=== PATIENT | female | born 1950 | race Caucasian/White ===

== ENCOUNTER → 2017-11-29 10:49 | Outpatient (CLI) | payer MEDICARE, MEDICAID, SELFPAY ==
[2017-11-29 11:13] LABS: Basophils % 0.8 % (0.1-2.0); Eosinophils # 0.1 K/mm3 (0.0-0.4); Eosinophils % 2.1 % (0.1-12.0); Hematocrit 50.2 % (37.0-47.0); Hemoglobin 15.1 g/dL (12.2-16.2); Lymphocytes # 1.5 K/mm3 (0.7-4.5); Mean Corpuscular HGB Conc 30.1 g/dL (31.8-35.4); Mean Corpuscular Hemoglobin 24.7 pg (27.0-31.2); Mean Corpuscular Volume 82.2 fl (81-99); Monocytes # 0.3 K/mm3 (0.1-1.0); Monocytes % 6.1 % (1.7-9.3); Neutrophils # 3.5 K/mm3 (1.8-7.8); Neutrophils % 63.1 % (37.0-80.0); Platelet Count 248 K/mm3 (142-424); Red Blood Count 6.11 M/mm3 (4.20-5.40); Red Cell Distribution Width 13.6 % (11.5-17.5); White Blood Count 5.5 K/mm3 (4.8-10.8)
[2017-11-29 12:54] LABS: Alanine Aminotransferase 29 U/L (12-78); Albumin Level 3.8 gm/dL (3.4-5.0); Albumin/Globulin Ratio 1.2 (1.1-1.8); Alkaline Phosphatase 59 U/L (46-116); Anion Gap 13.9 mEq/L (5-15); Aspartate Amino Transferase 24 U/L (15-37); Bilirubin,Total 0.4 mg/dL (0.2-1.0); Blood Urea Nitrogen 17 mg/dL (7-18); Calcium 9.4 mg/dL (8.5-10.1); Carbon Dioxide 29 mmol/L (21.0-32.0); Chloride 102 mmol/L (98-107); Creatinine,Serum 0.93 mg/dL (0.55-1.02); Estimated Glomerular Filt Rate 60 ml/min (>60); GFR (African American) 72 ML/MIN (>60); Globulin 3.2 gm/dl (1.3-3.2); Glucose 89 mg/dL (74-106); Potassium 3.9 mmoL/L (3.5-5.1); Sodium 141 mmol/L (136-145)
== END ==
PROVIDERS: Visit Provider Nurse Practitioner
DX: C50.912 Malignant neoplasm of unspecified site of left female breast (principal); N28.9 Disorder of kidney and ureter, unspecified
CPT/HCPCS: 36415; 80053; 85025

== ENCOUNTER → 2019-01-16 11:03 | Outpatient (CLI) | payer MEDICARE, MEDICAID, SELFPAY ==
[2019-01-16 11:22] LABS: Basophils % 0.3 % (0.1-2.0); Eosinophils # 0.1 K/mm3 (0.0-0.4); Eosinophils % 2.6 % (0.1-12.0); Hematocrit 45.1 % (37.0-47.0); Hemoglobin 13.8 g/dL (12.2-16.2); Lymphocytes # 1.3 K/mm3 (0.7-4.5); Lymphocytes % 25.2 % (10-50); Mean Corpuscular HGB Conc 30.7 g/dL (31.8-35.4); Mean Corpuscular Hemoglobin 24.6 pg (27.0-31.2); Mean Corpuscular Volume 80.2 fl (81-99); Mean Platelet Volume 8.1 fl (7.4-10.4); Monocytes # 0.4 K/mm3 (0.1-1.0); Monocytes % 6.8 % (1.7-9.3); Neutrophils # 3.4 K/mm3 (1.8-7.8); Neutrophils % 65.1 % (37.0-80.0); Platelet Count 225 K/mm3 (142-424); Red Blood Count 5.62 M/mm3 (4.20-5.40); Red Cell Distribution Width 13.6 % (11.5-17.5); White Blood Count 5.2 K/mm3 (4.8-10.8)
[2019-01-16 11:56] LABS: Alanine Aminotransferase 24 U/L (12-78); Albumin Level 3.6 gm/dL (3.4-5.0); Albumin/Globulin Ratio 1.2 (1.1-1.8); Alkaline Phosphatase 54 U/L (46-116); Anion Gap 10.8 mEq/L (5-15); Aspartate Amino Transferase 20 U/L (15-37); Bilirubin,Total 0.5 mg/dL (0.2-1.0); Blood Urea Nitrogen 27 mg/dL (7-18); Calcium 8.8 mg/dL (8.5-10.1); Carbon Dioxide 31 mmol/L (21.0-32.0); Chloride 103 mmol/L (98-107); Estimated Glomerular Filt Rate 55 ml/min (>60); GFR (African American) 66 ML/MIN (>60); Globulin 2.9 gm/dl (1.3-3.2); Glucose 96 mg/dL (74-106); Potassium 3.8 mmoL/L (3.5-5.1); Sodium 141 mmol/L (136-145); Total Protein,Serum 6.5 gm/dL (6.4-8.2)
== END ==
PROVIDERS: Visit Provider Nurse Practitioner
DX: C50.912 Malignant neoplasm of unspecified site of left female breast (principal)
CPT/HCPCS: 36415; 80053; 85025

== ENCOUNTER 2022-02-28 08:56 | Observation (INO) | payer MEDICARE, MEDICAID, SELFPAY ==
[2022-02-28] VITALS (16 sets, daily range): BP systolic 92–126; BP diastolic 47–72; PULSE 58–95; RESP 16–20; TEMP 36.7–36.9; O2SAT 94–100; BMI 21.9; BMI 22.1
--- NOTE | 2022-02-28 08:53 | HMH.EDGENADL ---
Discharge Plan Disposition Patient Disposition: Xfer Other Condition: Fair Prescriptions Prescriptions: No Action hydrochlorothiazide 25 mg tablet 25 mg PO QAM cholecalciferol (vitamin D3) 1,000 unit capsule 1,000 unit PO DAILY Clinical Impressions Clinical Impression: Pancreatitis, Cyst and pseudocyst of pancreas, Acute hypokalemia, Moderate nausea and vomiting Instructions Patient Instructions: DI for Acute Abdominal Pain Discharge ED Provider: Cruz Levine General Adult HPI General Chief complaint: Abdominal Pain Stated complaint: Back Pain Time Seen by Provider: 02/28/22 08:53 Mode of Arrival: EMS History of Present Illness HPI narrative: 71-year-old female with history of pancreatic cancer, follows at , not currently undergoing any treatment. She reports having chronic lower back pain for which she takes hydrocodone twice daily. She is brought in today by EMS for exacerbation of low back pain which she states is much worse than typical and did not respond to her usual dose of hydrocodone. She is also reporting lower abdominal pain particularly in the periumbilical and right lower quadrant areas. Pain is described as constant, nonradiating, exacerbated with movement or palpation. She reports associated nausea however no vomiting, states she has been unable to eat does not have anything to throw up. She denies any dysuria any pain radiating down the legs any numbness, tingling, urinary incontinence or retention or any other complaints at this time Related Data Home Medications Medication Instructions Recorded Confirmed hydrochlorothiazide 25 mg tablet 25 mg PO QAM 11/29/17 01/16/19 cholecalciferol (vitamin D3) 25 1,000 unit PO DAILY 01/16/19 01/16/19 mcg (1,000 unit) capsule Allergies Allergy/AdvReac Type Severity Reaction Status Date / Time No Known Allergies Allergy Verified 01/16/19 11:27 [facility] Medical History (Updated 02/28/22 @ 11:01 by Cruz Levine MD) Chronic back pain Pancreatic cancer Social History Smoking Status: Never smoker alcohol intake: never substance use type: denies use current occupational status: retired Travel in the last 8 weeks: None household members: significant other housing: other ROS Obtained: Yes Systems reviewed as appropriate & no additional complaints except as documented Constitutional Constitutional: Reports anorexia, Reports fatigue and Reports poor appetite Eyes Eyes: Reports system reviewed and no additional complaints, except as documented ENT Ears, Nose, Mouth, and Throat: Reports system reviewed and no additional complaints, except as documented Cardiovascular Cardiovascular: Reports system reviewed and no additional complaints, except as documented Respiratory Respiratory: Reports system reviewed and no additional complaints, except as documented Gastrointestinal Gastrointestingal: Reports abdominal pain and nausea; Denies coffee ground emesis, constipation, diarrhea, hematochezia, melena or vomiting Genitourinary Female Genitourinary: Reports system reviewed and no additional complaints, except as documented and Denies dysuria Musculoskeletal Musculoskeletal: Reports system reviewed and no additional complaints, except as documented Integumentary/Breasts Skin/Breast: Reports system reviewed and no additional complaints, except as documented Neurologic Neurologic: Reports system reviewed and no additional complaints, except as documented Endocrine Endocrine: Reports system reviewed and no additional complaints, except as documented and Reports fatigue Hematologic/Lymphatic Henatologic/Lymphatic: Reports system reviewed and no additional complaints, except as documented Allergic/Immunologic Allergic/Immunologic: Reports system reviewed and no additional complaints, except as documented Physical Exam General General appearance: alert and in no apparent dis
--- NOTE | 2022-02-28 08:58 | CT_ITS ---
PROCEDURE INFORMATION: Exam: CT Abdomen And Pelvis With Contrast Exam date and time: 02/28/2022 10:01 AM Age: 71 years old Clinical indication: Abdominal pain; Acute; Additional info: Rlq pain, lower back rupa HX of pancreatic cancer TECHNIQUE: Imaging protocol: Computed tomography of the abdomen and pelvis with contrast. Radiation optimization: All CT scans at this facility use at least one of these dose optimization techniques: automated exposure control; mA and/or kV adjustment per patient size (includes targeted exams where dose is matched to clinical indication); or iterative reconstruction. Contrast material: ISOVUE; Contrast volume: 75 ml; Contrast route: IV; COMPARISON: No relevant prior studies available. FINDINGS: Heart: There are coronary artery calcifications. Liver: There are few hypodensities in liver which are too small to characterize. Gallbladder and bile ducts: There is a biliary stent in place. There is pneumobilia. There are calcified gallstones. Pancreas: There is a mass within the pancreatic head and uncinate process encasing the SMA. This measures at least 3.3 x 2.1 cm. There is marked pancreatic duct dilatation measuring up to 1.5 cm. There is a collection adjacent to the pancreatic tail measuring 7.4 x 3.6 cm which may represent a pseudocyst. Spleen: The spleen is mildly enlarged measuring up to 14.8 cm. Adrenal glands: Normal. No mass. Kidneys and ureters: There are bilateral nonobstructing calculi. No hydronephrosis. Stomach and bowel: There is gastric mucosal thickening consistent with gastritis. Appendix: No evidence of appendicitis. Intraperitoneal space: No free air. No significant fluid collection. Vasculature: There is athrosclerotic disease involving the abdominal aorta and pelvis vessels without an aneurysm. There is splenic vein occlusion. Lymph nodes: No enlarged lymph nodes. Urinary bladder: Unremarkable as visualized. Reproductive: The uterus is retroverted. There is abnormal thickening of the endometrium measuring up to 15 mm. Bones/joints: There are degenerative changes of the spine. Soft tissues: Unremarkable. IMPRESSION: 1. Mass in the pancreatic head with marked pancreatic duct dilatation. 2. Large fluid collection in the anterior pararenal space adjacent to the pancreatic tail consistent with pancreatitis. There may be a early pseudocyst forming. 3. Biliary stent. 4. Gallstones. 5. Nonobstructing renal calculi. 6. Thickened endometrium. A follow-up ultrasound may be clinically indicated.
--- NOTE | 2022-02-28 09:12 | PC.NURSE ---
Pt family at bedside at this time. Pt laying in stretcher. WINNIE Donnelly at bedside to draw labs and medicate pt.
--- NOTE | 2022-02-28 09:25 | PC.NURSE ---
Gave pt a warm blanket; no other needs at this time
[2022-02-28 09:43] LABS: Coronavirus 19, PCR Not Detected (NotDetected); Influenza A, PCR Not Detected (NotDetected); Influenza B, PCR Not Detected (NotDetected)
[2022-02-28 09:46] LABS: Basophils % 0.2 % (0.1-2.0); Eosinophils % 0.1 % (0.1-12.0); Hematocrit 38.3 % (37.0-47.0); Lymphocytes # 0.5 K/mm3 (0.7-4.5); Lymphocytes % 3.8 % (10-50); Mean Corpuscular HGB Conc 31.4 g/dL (31.8-35.4); Mean Corpuscular Hemoglobin 25.8 pg (27.0-31.2); Mean Corpuscular Volume 82.3 fl (81-99); Mean Platelet Volume 9.5 fl (7.4-10.4); Monocytes # 0.4 K/mm3 (0.1-1.0); Monocytes % 2.9 % (1.7-9.3); Neutrophils # 12.7 K/mm3 (1.8-7.8); Neutrophils % 93.1 % (37.0-80.0); Platelet Count 307 K/mm3 (142-424); Red Blood Count 4.65 M/mm3 (4.20-5.40); Red Cell Distribution Width 14.2 % (11.5-17.5); White Blood Count 13.7 K/mm3 (4.8-10.8)
[2022-02-28 09:49] LABS: MANUAL DIFFERENTIAL MANUAL DIFFERENTIAL (MANUAL DIFF)
[2022-02-28 09:52] LABS: Alanine Aminotransferase 18 U/L (12-78); Albumin Level 2.9 g/dl (3.5-5.0); Albumin/Globulin Ratio 0.9 (1.1-1.8); Alkaline Phosphatase 142 U/L (38-126); Anion Gap 12.9 mEq/L (5-15); Aspartate Amino Transferase 22 U/L (14-36); Bilirubin,Total 0.6 mg/dl (0.2-1.3); Blood Urea Nitrogen 25 mg/dl (7-17); Calcium 8.4 mg/dl (8.4-10.2); Carbon Dioxide 33 mmol/L (22.0-30.0); Chloride 95 mmol/L (98-107); Creatinine Clearance Estimated 43 mL/min (50-200); Estimated Glomerular Filt Rate 156 ml/min (>60); GFR (African American) 189 ML/MIN (>60); Globulin 3.2 g/dL (1.3-3.2); Glucose 134 mg/dl (74-100); Lipase 384 U/L (23-300); Sodium 138 mmol/L (136-145); Total Protein,Serum 6.1 g/dl (6.3-8.2)
--- NOTE | 2022-02-28 09:52 | PC.NURSE ---
pt ambulated well to and from restroom; produced urine and tech sent to the lab
[2022-02-28 09:53] LABS: Potassium 2.9 mmoL/L (3.5-5.1)
[2022-02-28 09:53] LABS: Appearance,Urine SL CLOUDY (Clear); Blood, Urine Negative (Negative); Color,Urine YELLOW (Yellow); Glucose,Urine (UA) Negative (Negative); Ketones,Urine 3+ (Negative); Leukocyte Esterase,Urine Negative (Negative); Microscopic, Urine URINE MICROSCOPIC (MICROSCOPIC); Nitrate,Urine Negative (Negative); Protein,Urine TRACE (Negative); Urobilinogen,Urine 0.2 EU/dl (0.2)
[2022-02-28 09:57] LABS: Bilirubin,Urine 2+ (Negative)
[2022-02-28 10:02] LABS: Lymphocytes % 4 % (10-50); Monocytes % 3 % (2-9); Neutrophils % 92 % (42-76); Total Cells Counted 100
[2022-02-28 10:03] LABS: Hypochromasia 1+; Ovalocytes 1+; Platelet Estimate Normal
[2022-02-28 10:15] LABS: Bacteria,Urine Trace /lpf; WBC,Urine Occasional #/hpf (0-3)
--- NOTE | 2022-02-28 10:55 | PC.NURSE ---
placed call to [facility] for transfer
--- NOTE | 2022-02-28 10:59 | PC.NURSE ---
CONTACTED RADIOLOGY REQUESTED THEY POWERSHARE PT IMAGES WITH , SPOKE WITH REMI.
--- NOTE | 2022-02-28 11:03 | PC.NURSE ---
Dr Levine talking to for transfer
--- NOTE | 2022-02-28 11:07 | PC.NURSE ---
pt accepted to at this time per Dr. Kuhn, no bed available at this time.
--- NOTE | 2022-02-28 14:18 | PC.NURSE ---
contacted to check on status of bed assignment, transfer center staff states pt is on a long waiting list . No ETA available for bed assignment at this time.
--- NOTE | 2022-02-28 14:24 | PC.NURSE ---
updated pt and family member that she is on waiting list at at this time and we do not currently have an ETA on bed assignment. Offered pt a hospital bed for more comfort, pt declined at this time states she is okay. pt given additional warm blanket. Pt reminded about call light. Will continue to monitor
--- NOTE | 2022-02-28 14:38 | PC.NURSE ---
Flavia ZHOU brought bed for pt
--- NOTE | 2022-02-28 16:00 | PC.NURSE ---
jonathon berry rounded on pt at this time, pt sleeping.
--- NOTE | 2022-02-28 17:28 | PC.NURSE ---
Tyron Valdez at this time.
--- NOTE | 2022-02-28 17:57 | PC.NURSE ---
Dr caro speaking with dr [email or web address]
[2022-03-01 04:11] VITALS: BP 115/57; PULSE 72; RESP 16; TEMP 36.9; O2SAT 97
--- NOTE | 2022-03-01 04:58 | PC.NURSE ---
PT HAS RESTED WELL THIS SHIFT. PAIN CONTROLLED WITH PRN MEDICATIONS. LUNGS REMAIN CTAB AND BOWEL ACTIVE X4 QUADRANTS. MILD GENERALIZED ABDOMINAL TENDERNESS WITH PALPATION NOTED. NO EDEMA OR SKIN PROBLEMS. PATIENT IS A&O X4 AND AMBULATORY WITH STANDBY ASSIST. IV TO RIGHT A/C PATENT AND INFUSING NS AT 150ML/HR. PT HAS REMAINED NPO. CALL DAVID IN REACH.
--- NOTE | 2022-03-01 08:11 | HMH.PHAINT1 ---
Pharmacy Intervention Comments: MEDICATION RECONCILIATION COMPLETED ON PATIENT USING EXTERNAL FILL HISTORY FROM PHARMACY AND GO REPORT. -GUY ESCALONA, DEBRAD
--- NOTE | 2022-03-01 08:12 | EXP.PHA.VTE ---
[facility] Pharmacy VTE Monitoring Patient Demographics Admission date: 02/28/22 Report Date: 03/01/22 Time: 08:12 Patient Allergies No Known Allergies Allergy (Verified 01/16/19 11:27) Height: 1.57 m Weight: 54.431 kg Current Active Problems (Updated 02/28/22 @ 19:00 by Kimberly Nevarez RN) Pancreatitis (Acute) Cyst and pseudocyst of pancreas (Acute) Acute hypokalemia (Acute) Moderate nausea and vomiting (Acute) VTE Risk Labs: VTE Related Lab Results Hgb 12.0 g/dL (12.2-16.2) L 02/28/22 09:20 Hct 38.3 % (37.0-47.0) 02/28/22 09:20 Plt Count 307 K/mm3 (142-424) 02/28/22 09:20 BUN 25 mg/dl (7-17) H 02/28/22 09:20 Creatinine 0.40 mg/dl (0.52-1.04) L 02/28/22 09:20 Estimated Creat Clear 43 mL/min (50-200) 02/28/22 09:20 Was VTE Risk Assessment Performed: Yes VTE Score: 1 VTE Risk Level: Very Low Risk Prophylaxis VTE Prophylaxis Ordered?: Yes Types of VTE Prophylaxis: TEDS Knee High Location of Applied Device: Bilateral Lower Extremeties
--- NOTE | 2022-03-01 08:29 | EXP.HP ---
History of Present Illness *Admission Date: 02/28/22 *Reason for visit:: abdominal pain *History of present illness: 71-year-old female with history of pancreatic cancer, follows at , not currently undergoing any treatment.? She reports having chronic lower back pain for which she takes hydrocodone twice daily.? She is brought in today by EMS for exacerbation of low back pain which she states is much worse than typical and did not respond to her usual dose of hydrocodone.? She is also reporting lower abdominal pain particularly in the periumbilical and right lower quadrant areas.? Pain is described as constant, nonradiating, exacerbated with movement or palpation.? She reports associated nausea however no vomiting, states she has been unable to eat does not have anything to throw up.? She denies any dysuria any pain radiating down the legs any numbness, tingling, urinary incontinence or retention or any other complaints at this time. Reevaluation #1: CT findings consistent with acute pancreatitis with associated likely pancreatic pseudocyst as there is large pararenal fluid collection.? This was not previously known, and I reviewed her CT from from 01/25/2022 which did not demonstrate this finding.? She provided further history noting that she had been seen at approximately [address] aSvage, had ERCP completed with biliary stent placed. will discuss with for transfer. re-visited and may be days before transfer.? Discussed with Dr. Valdez and will admit here in the interim. the above as per ER documentation. Patient received a run of IV fluids in the ER as well as a liter of IV fluids. She received morphine for pain and Zofran for nausea. This a.m. patient does feel better. She still has some mid back pain but has been well controlled. She did sleep some last night. She has been n.p.o. She states her bowels have not moved in about a week But she has eaten very little in the last 1 to 2 weeks. She has lost 20 pounds.. She voids without difficulty. Patient states she was to meet at This for plan of care. [facility] Medical History (Updated 03/01/22 @ 08:48 by Bertha Payan APRN) Chronic back pain Hypertension Pancreatic cancer Surgical History (Updated 02/28/22 @ 19:00 by Kimberly Nevarez RN) History of bilateral tubal ligation History of section History of colonoscopy Family History (Updated 02/28/22 @ 19:00 by Kimberly Nevarez RN) Family history of stroke Family history of cancer Social History (Updated 02/28/22 @ 19:00 by Kimberly Nevarez RN) Smoking Status: Never smoker alcohol intake: never substance use type: denies use current occupational status: retired Travel in the last 8 weeks: None household members: significant other housing: other lives independently: Yes marital status: Review of Systems Constitutional Constitutional: Reports fever(s), Denies frequent falls, Denies headache(s), Reports poor appetite, Reports weakness and Reports weight loss ( States she has lost 20 pounds in the last few weeks) Eyes Eyes: Denies change in vision ENT Ears, Nose, Mouth, and Throat: Denies dizziness, Denies otalgia, Denies headache(s), Denies sore throat and Denies vertigo *Cardiovascular Cardiovascular: Denies chest pain and Denies dyspnea *Respiratory Respiratory: Denies chest congestion, Denies cough and Denies dyspnea *Gastrointestinal Gastrointestinal: Reports abdominal pain, Denies belching, Reports constipation, Denies diarrhea, Denies dyspepsia, Denies excessive flatus, Denies heartburn, Denies hematemesis, Denies hematochezia, Reports nausea and Denies vomiting *Genitourinary Genitourinary: Denies difficulty voiding *Musculoskeletal Musculoskeletal: Denies muscle weakness and Denies myalgias *Neurologic Neurologic: Denies dizziness, Denies frequent falls, Denies headache(s), Denies seizure-like activity, Denies vertigo and Reports weaknes
[2022-03-01 08:30] VITALS: BP 141/65; PULSE 70; RESP 18; TEMP 36.4; O2SAT 96
--- NOTE | 2022-03-01 08:30 | PC.NURSE ---
here to see pt.
[2022-03-01 09:06] LABS: MANUAL DIFFERENTIAL MANUAL DIFFERENTIAL (MANUAL DIFF)
[2022-03-01 09:07] LABS: Basophils % 0.2 % (0.1-2.0); Eosinophils % 0.2 % (0.1-12.0); Hematocrit 36.1 % (37.0-47.0); Hemoglobin 11.1 g/dL (12.2-16.2); Lymphocytes # 0.6 K/mm3 (0.7-4.5); Lymphocytes % 4.7 % (10-50); Mean Corpuscular HGB Conc 30.7 g/dL (31.8-35.4); Mean Corpuscular Hemoglobin 25.6 pg (27.0-31.2); Mean Corpuscular Volume 83.3 fl (81-99); Mean Platelet Volume 10.1 fl (7.4-10.4); Monocytes # 0.3 K/mm3 (0.1-1.0); Monocytes % 2.4 % (1.7-9.3); Neutrophils # 11.7 K/mm3 (1.8-7.8); Neutrophils % 92.5 % (37.0-80.0); Platelet Count 321 K/mm3 (142-424); Red Blood Count 4.34 M/mm3 (4.20-5.40); Red Cell Distribution Width 14.3 % (11.5-17.5); White Blood Count 12.6 K/mm3 (4.8-10.8)
[2022-03-01 09:12] VITALS: O2SAT 96
[2022-03-01 09:13] LABS: Chloride 103 mmol/L (98-107)
[2022-03-01 09:14] LABS: Sodium 141 mmol/L (136-145)
[2022-03-01 09:17] LABS: Anion Gap 17.8 mEq/L (5-15); Calcium 7.3 mg/dl (8.4-10.2); Carbon Dioxide 23 mmol/L (22.0-30.0); Glucose 95 mg/dl (74-100)
[2022-03-01 09:23] LABS: Hypochromasia 2+; Lymphocytes % 5 % (10-50); Monocytes % 3 % (2-9); Neutrophils % 92 % (42-76); Ovalocytes 1+; Platelet Estimate Normal; Total Cells Counted 100
[2022-03-01 09:24] LABS: Anisocytosis 1+
[2022-03-01 09:32] LABS: Potassium 2.8 mmoL/L (3.5-5.1)
[2022-03-01 10:14] LABS: Blood Urea Nitrogen 16 mg/dl (7-17); Creatinine Clearance Estimated 43 mL/min (50-200); Estimated Glomerular Filt Rate 121 ml/min (>60); GFR (African American) 146 ML/MIN (>60)
[2022-03-01 12:00] VITALS: BP 116/56; PULSE 62; RESP 18; TEMP 36.9; O2SAT 97
--- NOTE | 2022-03-01 13:41 | PC.NURSE ---
Pt given chicken broth per request. Has tolerated water and ice chips thus far.
--- NOTE | 2022-03-01 14:40 | PC.NURSE ---
Received bed assignment from [facility]. Pt and pt's family notified.
--- NOTE | 2022-03-01 14:59 | PC.NURSE ---
Attempted to call [facility] to give report. Called 2 different numbers ([phone] and [phone]) with no answer. Both numbers rang numerous times.
--- NOTE | 2022-03-01 15:33 | PC.NURSE ---
Pt up to the bathroom taking a sponge bath . Does not want to shower at this time stating it's too cold .
--- NOTE | 2022-03-01 15:49 | PC.NURSE ---
1545- Report called to Margot CAVAZOS RN that will be receiving pt.
--- NOTE | 2022-03-01 18:07 | PC.NURSE ---
[facility] here to transport pt to [facility]
--- NOTE | 2022-03-01 21:15 | EXP.DC.SUM ---
General Admission date:: 02/28/22 Discharge date: 03/01/22 HPI HPI HPI: 71-year-old female with history of pancreatic cancer, follows at , not currently undergoing any treatment.? She reports having chronic lower back pain for which she takes hydrocodone twice daily.? She is brought in today by EMS for exacerbation of low back pain which she states is much worse than typical and did not respond to her usual dose of hydrocodone.? She is also reporting lower abdominal pain particularly in the periumbilical and right lower quadrant areas.? Pain is described as constant, nonradiating, exacerbated with movement or palpation.? She reports associated nausea however no vomiting, states she has been unable to eat does not have anything to throw up.? She denies any dysuria any pain radiating down the legs any numbness, tingling, urinary incontinence or retention or any other complaints at this time. Reevaluation #1: CT findings consistent with acute pancreatitis with associated likely pancreatic pseudocyst as there is large pararenal fluid collection.? This was not previously known, and I reviewed her CT from from 01/25/2022 which did not demonstrate this finding.? She provided further history noting that she had been seen at approximately [address] Savage, had ERCP completed with biliary stent placed. will discuss with for transfer. re-visited and may be days before transfer.? Discussed with Dr. Valdez and will admit here in the interim. the above as per ER documentation. Patient received a run of IV potassium in the ER as well as a liter of IV fluids. She received morphine for pain and Zofran for nausea. The next a.m. patient felt better. She still had some mid back pain but was controlled. She did sleep some during the night. She remained n.p.o. She stated her bowels had not moved in about a week She also noted that she had eaten very little in the last 1 to 2 weeks with about a 20 pound weight loss.. She was voiding without difficulty. Patient stated she was to meet at This for plan of care. Hospital Course Hospital Course Hospital Course: After admission pt was continued with IVF with potassoim. She received addition PO and IV potassium for repeat low potassium of 2.8. She received morphine for pain and Zofran for nausea. She was able to retain some clear liquids. In the PM of 03/01/2022 a bed became available and the patient was transferred to [facility] via [facility]'s ambulance service. Condition at transfer was stable. Further care as per Physicians at . See data for lab and radiology results. Exam Data for Last 24 hours Vital signs and Labs for Last 24 Hours: Temp Pulse Resp BP Pulse Ox 98.5 F 62 18 116/56 L 97 03/01/22 12:00 03/01/22 12:00 03/01/22 12:00 03/01/22 12:00 03/01/22 12:00 Laboratory Results - last 24 hr 03/01/22 09:00: WBC 12.6 H, RBC 4.34, Hgb 11.1 L, Hct 36.1 L, MCV 83.3, MCH 25.6 L, MCHC 30.7 L, RDW 14.3, Plt Count 321, MPV 10.1, Neut % (Auto) 92.5 H, Lymph % (Auto) 4.7 L, Barry % (Auto) 2.4, Eos % (Auto) 0.2, Baso % (Auto) 0.2, Neut # (Auto) 11.7 H, Lymph # (Auto) 0.6 L, Barry # (Auto) 0.3, Eos # (Auto) 0.0, Baso # (Auto) 0.0, Total Counted 100, Neutrophils % (Manual) 92 H, Lymphocytes % (Manual) 5 L, Monocytes % (Manual) 3, Platelet Estimate Normal, Hypochromasia 2+, Anisocytosis 1+, Ovalocytes 1+ 03/01/22 09:00: Sodium 141, Potassium 2.8 L*, Chloride 103, Carbon Dioxide 23, Anion Gap 17.8 H, BUN 16 D, Creatinine 0.50 L D, Estimated Creat Clear 43, Estimated GFR 121, Est GFR ( Amer) 146 D, Glucose 95 D, Calcium 7.3 L Exam Data for Last 24 hours Vital signs and Labs for Last 24 Hours: Temp Pulse Resp BP Pulse Ox ?98.4 F ?72 ?16 ?115/57 L ?97 ?03/01/22 04:11 ?03/01/22 04:11 ?03/01/22 04:11 ?03/01/22 04:11 ?03/01/22 04:11 Laboratory Results - last 24 hr 02/28/22 09:20: WBC 13.7 H, RBC 4.65,?Hgb 12.0 L, Hct 38.3, MCV 82.3,?MCH 25.8 L,?MCHC 31.4 L, RDW 14.2, Plt
--- NOTE | 2022-04-01 15:30 | DIET.NUTRFU ---
RD was consulted by nursing in [place]. Patient has pancreatic CA with nausea and wt loss. Recently started on zofran and is feeling better. When called today she said she has been eating better and even went for a walk today. She has been drinking boost all home multiple times/day. Weight hx 118 on 03/01 and 113 03/31, down 5#. Patient was anxious to start chemo. She indicated she has been through chemo tx before. Provided contact information for future concerns
== END 2022-03-01 18:11 | disposition short-term general hospital (02) ==
LOC: ER 11:01 → OB 18:18
PROVIDERS: Nurse Practitioner Family; Admitting Provider Family Medicine; Emergency Provider Emergency Medicine; PCP Nurse Practitioner Family; Visit Provider Family Medicine
DX: K85.90 Acute pancreatitis without necrosis or infection, unspecified (principal); K86.2 Cyst of pancreas; K86.3 Pseudocyst of pancreas; E87.6 Hypokalemia; C25.9 Malignant neoplasm of pancreas, unspecified; R29.6 Repeated falls; Z20.822 Contact with and (suspected) exposure to COVID-19
CPT/HCPCS: G0378; 36415; 74177; 80048; 80053; 81001; 83690; 85007; 85014; 85018; 85025; 85048; 85049; 99285; C9803; J2405; Q9967; U0003; U0005

== ENCOUNTER → 2022-04-08 10:10 | Outpatient (CLI) | payer MEDICARE, MEDICAID, SELFPAY ==
--- NOTE | 2022-04-08 10:25 | US_ITS ---
FINAL REPORT CLINICAL HISTORY: PANCRIATIC CANCER-- LT PLEURAL EFFUSION THORA PERF BY FRANCK ULRICH-- 450 FINDINGS: ULTRASOUND GUIDED THORACENTESIS History: Left pleural effusion Attending radiologist: Dr. Garcia Physician payroll and benefits assistant: Franck Ulrich PA-C Procedure: The left posterior chest was prepped and routine sterile fashion. Appropriate pocket was localized for drainage. The patient was prepped and draped in routine fashion. Local anesthesia was achieved with 1% lidocaine. Using imaging guidance with images acquired, Turkel needle was directed into the pleural fluid. Approximately 450 mL of fluid was aspirated. Fluid was sent for laboratory analysis. IMPRESSION: Successful ultrasound guided thoracentesis There are multiple surgical clips identified overlying the right upper quadrant, consistent with cholecystectomy. Images reviewed, interpreted and dictated by Dr. Garcia. Transcribed by Franck Ulrich PA-C. Reviewed, Interpreted and Dictated by Koko Garcia III, MD Transcribed by MAYANK Ruiz Authenticated and [facility]
[2022-04-08 10:35] VITALS: BMI 20.6
--- NOTE | 2022-04-08 10:36 | ECG_ITS ---
APPROVED REPORT Exam: Resting ECG HR:100 bpm ECG Measurements Heart Rate 100 AXES GA 147 P 84 QRSd 74 QRS 14 QT 346 T 61 QTc 403 Conclusion SINUS TACHYCARDIA WITH FREQUENT SUPRAVENTRICULAR PREMATURE COMPLEXES LOW QRS VOLTAGE IN PRECORDIAL LEADS [QRS DEFLECTION < 1.0 mV IN CHEST LEADS] NONSPECIFIC T-WAVE ABNORMALITY ABNORMAL RHYTHM ECG UNCONFIRMED REPORT Electronically signed by : Ricardo Gu MD 04/08/2022 15:25:00
--- NOTE | 2022-04-08 11:10 | PC.NURSE ---
[facility] assessed patient r/t abn EKG in preop . Instructed to have patient FU in cardiololgy office in 2 weeks. Scheduled appt for Apr 21 @ 0830. Gave information verbal and written to patient and daughter in preop.
--- NOTE | 2022-04-08 11:25 | EXP.CARD.CON ---
History of Present Illness History of Present Illness Consult date: 04/08/22 [facility] Medical History (Updated 04/08/22 @ 10:32 by Yolette Miranda, RN) Chronic back pain History of breast cancer Hypertension Pancreatic cancer Surgical History (Updated 04/08/22 @ 10:34 by Yolette Miranda, RN) History of bilateral tubal ligation History of section History of colonoscopy History of lumpectomy of left breast Family History (Updated 04/08/22 @ 10:36 by Yoletet Miranda, RN) Other Family history of cancer Family history of diabetes mellitus type II Family history of stroke Social History (Updated 04/08/22 @ 10:38 by Yolette Miranda, WINNIE) Smoking Status: Former smoker alcohol intake: never substance use type: denies use current occupational status: retired Travel in the last 8 weeks: None household members: significant other housing: other lives independently: Yes marital status: Exam Data for Last 24 hours I & O for Last 24 hours: Intake & Output 04/05/22 04/06/22 04/07/22 04/08/22 23:59 23:59 23:59 23:59 Weight 113 lb Meds Home Medications and Allergies Home Medications Medication Instructions Recorded Confirmed Type hydrochlorothiazide 25 mg tablet 25 mg PO DAILY Fluid 03/31/22 04/08/22 History ondansetron 4 mg disintegrating 4 mg PO DAILY Nausea & vomiting 03/31/22 04/08/22 History tablet morphine 15 mg immediate release 15 mg PO Q4H PRN cancer pain #180 04/07/22 04/08/22 Rx tablet tabs New Prescriptions to Start Prescriptions: Allergies Allergy/AdvReac Type Severity Reaction Status Date / Time No Known Allergies Allergy Verified 04/07/22 09:40
--- NOTE | 2022-04-08 11:35 | XR_ITS ---
FINAL REPORT TECHNIQUE: Chest PA & Lateral CLINICAL HISTORY: POST L PARACENTESIS FINDINGS: 2 views of the chest were performed. There is a left subclavian chest port. The heart size is normal. The mediastinum is within normal limits. There is no acute cardiopulmonary process. There is a small left pleural effusion. There is no pneumothorax. The bony thorax appears intact. A stent is seen in the medial right abdomen. IMPRESSION: No acute cardiopulmonary process. Reviewed, Interpreted and Dictated by Koko Garcia III, MD Transcribed by Casey Buckner Authenticated and [facility]
[2022-04-08 12:15] VITALS: BP 112/66; PULSE 96; RESP 18; TEMP 36.7; O2SAT 97
[2022-04-08 12:30] VITALS: BP 118/79; PULSE 88; RESP 16; O2SAT 96
[2022-04-08 12:45] VITALS: BP 127/74; PULSE 92; RESP 14; O2SAT 97
[2022-04-08 13:00] VITALS: BP 114/74; PULSE 96; RESP 16; O2SAT 98
[2022-04-08 13:15] VITALS: BP 130/82; PULSE 94; RESP 16; O2SAT 97
--- NOTE | 2022-04-08 13:36 | PC.NURSE ---
pt. stable at d/c. instructed pt on signed and symptoms to report (shortness of breath, chest pain). Instructed pt on dressing care. pt and family state they have no questions and understand d/c instructions
== END ==
PROVIDERS: PCP Nurse Practitioner Family; Visit Provider Internal Medicine Medical Oncology
DX: R18.8 Other ascites (principal); C25.9 Malignant neoplasm of pancreas, unspecified
CPT/HCPCS: 32555; 71046; 88112; 88305; 93005

== ENCOUNTER 2022-04-13 10:46 | Outpatient (CLI) | payer MEDICARE, MEDICAID, SELFPAY ==
[2022-04-13] VITALS (10 sets, daily range): BP systolic 110–130; BP diastolic 54–83; PULSE 79–92; RESP 18; TEMP 36.3–36.4; O2SAT 97–99; BMI 19.8
[2022-04-13 11:30] LABS: Basophils # 0.1 K/mm3 (0-0.2); Basophils % 1.1 % (0.1-2.0); Eosinophils # 0.1 K/mm3 (0.0-0.4); Eosinophils % 0.5 % (0.1-12.0); Hematocrit 35.3 % (37.0-47.0); Hemoglobin 10.7 g/dL (12.2-16.2); Lymphocytes # 1.4 K/mm3 (0.7-4.5); Lymphocytes % 14.7 % (10-50); Mean Corpuscular HGB Conc 30.4 g/dL (31.8-35.4); Mean Corpuscular Volume 75.6 fl (81-99); Mean Platelet Volume 8.1 fl (7.4-10.4); Monocytes # 0.5 K/mm3 (0.1-1.0); Monocytes % 5.3 % (1.7-9.3); Neutrophils # 7.5 K/mm3 (1.8-7.8); Neutrophils % 78.4 % (37.0-80.0); Platelet Count 418 K/mm3 (142-424); Red Blood Count 4.67 M/mm3 (4.20-5.40); Red Cell Distribution Width 16.5 % (11.5-17.5); White Blood Count 9.6 K/mm3 (4.8-10.8)
[2022-04-13 11:37] LABS: Chloride 90 mmol/L (98-107)
[2022-04-13 11:38] LABS: Sodium 134 mmol/L (136-145)
[2022-04-13 11:40] LABS: Alanine Aminotransferase 13 U/L (12-78); Aspartate Amino Transferase 29 U/L (14-36); Blood Urea Nitrogen 20 mg/dl (7-17); Creatinine Clearance Estimated 40 mL/min (50-200); Estimated Glomerular Filt Rate 98 ml/min (>60); GFR (African American) 119 ML/MIN (>60)
[2022-04-13 11:41] LABS: Albumin Level 2.9 g/dl (3.5-5.0); Alkaline Phosphatase 100 U/L (38-126); Bilirubin,Total 0.8 mg/dl (0.2-1.3); Calcium 7.9 mg/dl (8.4-10.2); Carbon Dioxide 37 mmol/L (22.0-30.0); Glucose 108 mg/dl (74-100); Total Protein,Serum 5.9 g/dl (6.3-8.2)
== END 2022-04-13 15:23 | disposition home or self-care (01) ==
LOC: INF 10:47
PROVIDERS: PCP Nurse Practitioner Family; Visit Provider Internal Medicine Medical Oncology
DX: Z51.11 Encounter for antineoplastic chemotherapy (principal); C25.9 Malignant neoplasm of pancreas, unspecified
CPT/HCPCS: 80053; 85025; 96413; 96417; J1642; J2405; J9201; J9264

== ENCOUNTER 2022-04-21 08:49 | Outpatient (CLI) | payer MEDICARE, MEDICAID, SELFPAY ==
[2022-04-21 08:54] VITALS: BMI 41.2
[2022-04-21 09:31] LABS: Basophils % 0.5 % (0.1-2.0); Eosinophils % 2.4 % (0.1-12.0); Hemoglobin 9.4 g/dL (12.2-16.2); Lymphocytes # 0.9 K/mm3 (0.7-4.5); Lymphocytes % 59.5 % (10-50); Mean Corpuscular HGB Conc 31.5 g/dL (31.8-35.4); Mean Corpuscular Volume 76.4 fl (81-99); Monocytes # 0.1 K/mm3 (0.1-1.0); Monocytes % 7.2 % (1.7-9.3); Neutrophils # 0.5 K/mm3 (1.8-7.8); Neutrophils % 30.4 % (37.0-80.0); Platelet Count 208 K/mm3 (142-424); Red Blood Count 3.93 M/mm3 (4.20-5.40); Red Cell Distribution Width 16.9 % (11.5-17.5); White Blood Count 1.5 K/mm3 (4.8-10.8)
[2022-04-21 09:34] LABS: MANUAL DIFFERENTIAL MANUAL DIFFERENTIAL (MANUAL DIFF)
[2022-04-21 09:41] LABS: Chloride 95 mmol/L (98-107); Potassium 3.1 mmoL/L (3.5-5.1); Sodium 136 mmol/L (136-145)
[2022-04-21 09:43] LABS: Blood Urea Nitrogen 14 mg/dl (7-17); Creatinine Clearance Estimated 45 mL/min (50-200); Estimated Glomerular Filt Rate 121 ml/min (>60); GFR (African American) 146 ML/MIN (>60)
[2022-04-21 09:44] LABS: Alanine Aminotransferase 15 U/L (12-78); Albumin Level 2.8 g/dl (3.5-5.0); Albumin/Globulin Ratio 1.1 (1.1-1.8); Alkaline Phosphatase 92 U/L (38-126); Anion Gap 12.1 mEq/L (5-15); Aspartate Amino Transferase 28 U/L (14-36); Bilirubin,Total 0.5 mg/dl (0.2-1.3); Calcium 7.9 mg/dl (8.4-10.2); Carbon Dioxide 32 mmol/L (22.0-30.0); Globulin 2.6 g/dL (1.3-3.2); Glucose 84 mg/dl (74-100); Total Protein,Serum 5.4 g/dl (6.3-8.2)
[2022-04-21 09:49] LABS: Anisocytosis 1+; Eosinophils % 2 % (0-3); Hypochromasia 1+; Lymphocytes % 60 % (10-50); Monocytes % 6 % (2-9); Neutrophils % 32 % (42-76); Ovalocytes 1+; Platelet Estimate Normal; Poikilocytosis 1+; Target Cells 1+; Total Cells Counted 100
[2022-04-21 10:14] VITALS: BP 123/64; PULSE 77; RESP 18; TEMP 36.3; O2SAT 99
[2022-04-21 11:20] VITALS: BP 143/70; PULSE 85; RESP 18; O2SAT 98
[2022-04-21 12:12] LABS: Iron 18 ug/dL (37-170)
[2022-04-21 12:21] LABS: Total Iron Binding Capacity 133 ug/dL (265-497)
[2022-04-21 12:49] LABS: Ferritin 455 ng/ml (11.1-264)
== END 2022-04-21 11:40 | disposition home or self-care (01) ==
LOC: INF 08:53
PROVIDERS: PCP Nurse Practitioner Family; Visit Provider Internal Medicine Medical Oncology
DX: C25.9 Malignant neoplasm of pancreas, unspecified (principal); D50.8 Other iron deficiency anemias; Z45.2 Encounter for adjustment and management of vascular access device
CPT/HCPCS: 80053; 82728; 83540; 83550; 85007; 85025; 96365; J1642

== ENCOUNTER 2022-04-28 10:41 | Outpatient (CLI) | payer MEDICARE, MEDICAID, SELFPAY ==
[2022-04-28] VITALS (8 sets, daily range): BP systolic 88–130; BP diastolic 61–66; PULSE 65–74; RESP 18; TEMP 36.2–36.3; O2SAT 98–100; BMI 17.4
[2022-04-28 11:19] LABS: Chloride 100 mmol/L (98-107); Sodium 136 mmol/L (136-145)
[2022-04-28 11:20] LABS: Potassium 3.5 mmoL/L (3.5-5.1)
[2022-04-28 11:22] LABS: Alanine Aminotransferase 15 U/L (12-78); Albumin Level 2.7 g/dl (3.5-5.0); Alkaline Phosphatase 106 U/L (38-126); Aspartate Amino Transferase 29 U/L (14-36); Bilirubin,Total 0.5 mg/dl (0.2-1.3); Blood Urea Nitrogen 15 mg/dl (7-17); Creatinine Clearance Estimated 34 mL/min (50-200); Estimated Glomerular Filt Rate 98 ml/min (>60); GFR (African American) 119 ML/MIN (>60)
[2022-04-28 11:23] LABS: Anion Gap 11.5 mEq/L (5-15); Calcium 8.2 mg/dl (8.4-10.2); Carbon Dioxide 28 mmol/L (22.0-30.0); Globulin 2.8 g/dL (1.3-3.2); Glucose 82 mg/dl (74-100); Total Protein,Serum 5.5 g/dl (6.3-8.2)
[2022-04-28 11:27] LABS: Basophils # 0.1 K/mm3 (0-0.2); Basophils % 0.9 % (0.1-2.0); Eosinophils # 0.1 K/mm3 (0.0-0.4); Eosinophils % 1.8 % (0.1-12.0); Hematocrit 33.9 % (37.0-47.0); Hemoglobin 10.5 g/dL (12.2-16.2); Lymphocytes # 1.5 K/mm3 (0.7-4.5); Lymphocytes % 22.5 % (10-50); Mean Corpuscular HGB Conc 30.9 g/dL (31.8-35.4); Mean Corpuscular Hemoglobin 23.1 pg (27.0-31.2); Mean Corpuscular Volume 74.9 fl (81-99); Mean Platelet Volume 7.7 fl (7.4-10.4); Monocytes # 0.4 K/mm3 (0.1-1.0); Neutrophils # 4.5 K/mm3 (1.8-7.8); Neutrophils % 68.9 % (37.0-80.0); Platelet Count 678 K/mm3 (142-424); Red Blood Count 4.53 M/mm3 (4.20-5.40); Red Cell Distribution Width 18.5 % (11.5-17.5); White Blood Count 6.6 K/mm3 (4.8-10.8)
== END 2022-04-28 14:15 | disposition home or self-care (01) ==
PROVIDERS: PCP Nurse Practitioner Family; Visit Provider Internal Medicine Medical Oncology
DX: Z51.11 Encounter for antineoplastic chemotherapy (principal); C25.9 Malignant neoplasm of pancreas, unspecified
CPT/HCPCS: 80053; 85025; 96413; 96417; J1642; J2405; J9201; J9264

== ENCOUNTER 2022-04-30 12:28 | Emergency (ER) | payer MEDICARE, MEDICAID, SELFPAY ==
[2022-04-30 12:29] VITALS: BP 147/83; PULSE 82; RESP 17; TEMP 36.9; O2SAT 98; BMI 17.7
--- NOTE | 2022-04-30 13:03 | PC.NURSE ---
DR. MONET AT BEDSIDE
[2022-04-30 13:05] LABS: Basophils % 0.2 % (0.1-2.0); Eosinophils % 0.3 % (0.1-12.0); Hematocrit 35.1 % (37.0-47.0); Hemoglobin 10.7 g/dL (12.2-16.2); Lymphocytes # 0.9 K/mm3 (0.7-4.5); Lymphocytes % 11.3 % (10-50); Mean Corpuscular HGB Conc 30.5 g/dL (31.8-35.4); Mean Corpuscular Hemoglobin 23.3 pg (27.0-31.2); Mean Corpuscular Volume 76.6 fl (81-99); Mean Platelet Volume 8.4 fl (7.4-10.4); Monocytes # 0.1 K/mm3 (0.1-1.0); Monocytes % 1.6 % (1.7-9.3); Neutrophils # 6.8 K/mm3 (1.8-7.8); Neutrophils % 86.5 % (37.0-80.0); Platelet Count 612 K/mm3 (142-424); Red Blood Count 4.58 M/mm3 (4.20-5.40); Red Cell Distribution Width 19.2 % (11.5-17.5); White Blood Count 7.8 K/mm3 (4.8-10.8)
[2022-04-30 13:07] LABS: Chloride 97 mmol/L (98-107); MANUAL DIFFERENTIAL MANUAL DIFFERENTIAL (MANUAL DIFF); Potassium 3.4 mmoL/L (3.5-5.1); Sodium 134 mmol/L (136-145)
[2022-04-30 13:09] LABS: Alanine Aminotransferase 16 U/L (12-78); Aspartate Amino Transferase 36 U/L (14-36); Blood Urea Nitrogen 17 mg/dl (7-17); Creatinine Clearance Estimated 35 mL/min (50-200); Estimated Glomerular Filt Rate 121 ml/min (>60); GFR (African American) 146 ML/MIN (>60)
--- NOTE | 2022-04-30 13:09 | CT_ITS ---
PROCEDURE INFORMATION: Exam: CT Abdomen And Pelvis With Contrast Exam date and time: 04/30/2022 1:32 PM Age: 71 years old Clinical indication: Abdominal pain; Generalized; Prior surgery; Surgery type: N/v x days; Patient HX: HX pancreatic cancer; Additional info: Abdo pain TECHNIQUE: Imaging protocol: Computed tomography of the abdomen and pelvis with contrast. Radiation optimization: All CT scans at this facility use at least one of these dose optimization techniques: automated exposure control; mA and/or kV adjustment per patient size (includes targeted exams where dose is matched to clinical indication); or iterative reconstruction. Contrast material: ISOVUE; Contrast volume: 75 ml; Contrast route: IV; COMPARISON: CT ABDOMEN PELVIS W CON 02/28/2022 10:01 AM FINDINGS: Liver: Stable hepatic cysts, largest measuring 1.2 cm. Gallbladder and bile ducts: Biliary duct stable. Pneumobilia again noted. Cholelithiasis. Pancreas: Stable appearance of mass in the pancreatic head and uncinate process measuring approximately 2.8 x 4 cm. Stable ductal dilatation of the pancreatic duct. Measures 1.4 cm along the pancreatic body. Significantly increased size of loculated fluid collection adjacent to the pancreatic tail, now with component lateral to the spleen measuring 8.3 x 8.5 cm. There are decreased associated inflammatory changes. May relate to pseudocyst. Spleen: Lesion adjacent to the spleen may be subcapsular in location. Adrenal glands: Normal. No mass. Kidneys and ureters: Normal. No hydronephrosis. Stomach and bowel: Unremarkable. No obstruction. No mucosal thickening. Appendix: No evidence of appendicitis. Intraperitoneal space: Unremarkable. No free air. No significant fluid collection. 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 Lymph nodes: Unremarkable. No enlarged lymph nodes. Urinary bladder: Unremarkable as visualized. Reproductive: Distended endometrial canal with fluid, measuring 2 cm. Correlation with ultrasound suggested. Bones/joints: Unremarkable. No acute fracture. Soft tissues: Unremarkable. IMPRESSION: 1. Stable appearance of mass in the pancreatic head and uncinate process measuring approximately 2.8 x 4 cm. 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 2. Significantly increased size of loculated fluid collection adjacent to the pancreatic tail, now with component lateral to the spleen measuring 8.3 x 8.5 cm. There are decreased associated inflammatory changes. May relate to pseudocyst. Lesion adjacent to the spleen may be subcapsular in location. 3. Biliary duct stable. Pneumobilia again noted. 4. Distended endometrial canal with fluid, measuring 2 cm. Correlation with ultrasound suggested.
[2022-04-30 13:10] LABS: Albumin Level 2.8 g/dl (3.5-5.0); Alkaline Phosphatase 118 U/L (38-126); Anion Gap 16.4 mEq/L (5-15); Bilirubin,Total 0.9 mg/dl (0.2-1.3); Calcium 7.9 mg/dl (8.4-10.2); Carbon Dioxide 24 mmol/L (22.0-30.0); Globulin 2.8 g/dL (1.3-3.2); Glucose 90 mg/dl (74-100); Total Protein,Serum 5.6 g/dl (6.3-8.2)
--- NOTE | 2022-04-30 13:10 | HMH.EDGENADL ---
Discharge Plan Disposition Patient Disposition: Home, Self-Care Condition: Good Prescriptions Prescriptions: New metoclopramide HCl [Reglan] 5 mg tablet 5 mg PO TIDP PRN (Reason: nausea and vomiting) Qty: 10 0RF No Action lidocaine-prilocaine 2.5-2.5 % cream 2.5 g topical NEEDED PRN (Reason: numbing site) megestrol 40 mg tablet 40 mg PO DAILY hydrochlorothiazide 25 mg tablet 25 mg PO DAILY ondansetron 4 mg tablet,disintegrating 4 mg PO DAILY morphine 15 mg tablet 15 mg PO Q4H PRN (Reason: cancer pain) Qty: 180 0RF mirtazapine 7.5 mg tablet 7.5 mg PO DAILY potassium chloride 20 mEq tablet,ER particles/crystals 20 tab PO DAILY Referrals Follow up/Referrals: Maryan Simpson APRN [Primary Care Provider] - See instructions Activity Restrictions/Add. Instructions Additional Instructions/Restrictions: Continue morphine for pain. Uses Zofran or Reglan as needed for nausea. Follow-up with Dr. Varela in the office, call Monday to make appointment. Clinical Impressions Clinical Impression: Nausea, Abdominal pain Instructions Patient Instructions: DI for Acute Abdominal Pain, DI for Nausea -- Adult Discharge ED Provider: Antonio Ramos General Adult HPI General Chief complaint: Abdominal Pain Stated complaint: Nausea, Stomach pain Time Seen by Provider: 04/30/22 12:58 Mode of Arrival: Wheelchair Limitations: No Limitations Description of Symptoms (Recalled from ER Triage Doc. by RN): PT WITH NAUSEA SINCE MONDAY, REPORTS TAKING CHEMO MONDAY, FELT BAD THAT NIGHT AND NAUSEA. REPORTS ABDOMINAL PAIN. CHEMO FOR PANCREATIC CANCER History of Present Illness HPI narrative: History obtained from patient and daughter. Patient has pancreatic cancer. States that she has abdominal pain around the central abdomen, nausea, vomiting for 2 to 3 days. Unable to hold anything down despite using Zofran at home. She is on morphine for pain at home, last taken this morning. States it does not always work. States she thought she could come over here in get a shot or something . Denies fever. She is urinating a normal amount. Last bowel movement 2 days ago. States she currently has no pain. Related Data Home Medications Medication Instructions Recorded Confirmed hydrochlorothiazide 25 mg tablet 25 mg PO DAILY Fluid 03/31/22 04/28/22 ondansetron 4 mg disintegrating 4 mg PO DAILY Nausea & vomiting 03/31/22 04/28/22 tablet lidocaine-prilocaine 2.5 %-2.5 % 2.5 g topical NEEDED PRN 04/21/22 04/28/22 topical cream numbing site megestrol 40 mg tablet 40 mg PO DAILY Appetite stimulant 04/21/22 04/28/22 mirtazapine 7.5 mg tablet 7.5 mg PO DAILY Depression 04/28/22 04/28/22 potassium chloride 20 mEq 20 tab PO DAILY Diet supplement 04/28/22 04/28/22 tablet,extended release(part/cryst) Previous Rx's Medication Instructions Recorded morphine 15 mg immediate release 15 mg PO Q4H PRN cancer pain #180 04/07/22 tablet tabs metoclopramide HCl 5 mg tablet 5 mg PO TIDP PRN nausea and 04/30/22 (Reglan) vomiting #10 tabs Allergies Allergy/AdvReac Type Severity Reaction Status Date / Time No Known Allergies Allergy Verified 04/28/22 10:58 [facility] Medical History Chronic back pain History of breast cancer Hypertension Pancreatic cancer Surgical History History of bilateral tubal ligation History of section History of colonoscopy History of lumpectomy of left breast Family History Other Family history of cancer Family history of diabetes mellitus type II Family history of stroke Social History Smoking Status: Former smoker alcohol intake: never substance use type: denies use current occupational status: retired [employer]
[2022-04-30 13:23] LABS: Anisocytosis 1+; Lymphocytes % 9 % (10-50); Monocytes % 5 % (2-9); Neutrophils % 86 % (42-76); Ovalocytes 1+; Platelet Estimate Moderate Increase; Target Cells 1+; Total Cells Counted 100
[2022-04-30 13:24] LABS: Lipase 57 U/L (23-300)
--- NOTE | 2022-04-30 13:40 | PC.NURSE ---
PT TO CT
[2022-04-30 13:46] LABS: Troponin I < 0.01 ng/ml (0.00-0.034)
--- NOTE | 2022-04-30 13:48 | PC.NURSE ---
PT RETURNED FROM CT
[2022-04-30 14:00] VITALS: BP 131/65; PULSE 88; RESP 22; O2SAT 99
[2022-04-30 14:30] VITALS: BP 128/64; PULSE 105; RESP 20; O2SAT 99
--- NOTE | 2022-04-30 14:41 | PC.NURSE ---
PT ASSISTED TO BR TO COLLECT UA
--- NOTE | 2022-04-30 14:45 | PC.NURSE ---
DR. MONET AT BEDSIDE TO REEVALUATE PT
[2022-04-30 14:49] LABS: Microscopic, Urine URINE MICROSCOPIC (MICROSCOPIC)
[2022-04-30 14:54] LABS: Appearance,Urine CLEAR (Clear); Bilirubin,Urine Negative (Negative); Blood, Urine Negative (Negative); Color,Urine YELLOW (Yellow); Glucose,Urine (UA) Negative (Negative); Ketones,Urine 2+ (Negative); Leukocyte Esterase,Urine Negative (Negative); Nitrate,Urine Negative (Negative); Protein,Urine Negative (Negative); Urobilinogen,Urine 0.2 EU/dl (0.2)
[2022-04-30 15:00] VITALS: BP 121/66; PULSE 90; RESP 20; O2SAT 98
[2022-04-30 15:11] LABS: Bacteria,Urine Trace /lpf; Squamous Epithelial Cell,Urine Occasional #/hpf (0-5); WBC,Urine Occasional #/hpf (0-3)
--- NOTE | 2022-04-30 15:15 | PC.NURSE ---
pt family requesting to speak with Dr Ramos, he is in room at this time
--- NOTE | 2022-04-30 15:15 | PC.NURSE ---
FAMILY REQUESTING TO SPEAK WITH DR. TIERNEY MCCORMICK AT BEDSIDE
--- NOTE | 2022-04-30 15:23 | PC.NURSE ---
speaking to the hospitalist
[2022-04-30 15:54] VITALS: BP 107/70; PULSE 80; RESP 17; TEMP 36.7; O2SAT 98
== END 2022-04-30 15:56 | disposition home or self-care (01) ==
PROVIDERS: Emergency Provider Emergency Medicine; PCP Nurse Practitioner Family
DX: R11.0 Nausea (principal); R10.9 Unspecified abdominal pain; Z79.899 Other long term (current) drug therapy; F32.A Depression, unspecified; C25.9 Malignant neoplasm of pancreas, unspecified
CPT/HCPCS: 74177; 80053; 81001; 83690; 84484; 85007; 85025; 96365; 96375; 99284; J1642; J2405; Q9967

== ENCOUNTER 2022-05-05 10:38 | Outpatient (CLI) | payer MEDICARE, MEDICAID, SELFPAY ==
[2022-05-05] VITALS (7 sets, daily range): BP systolic 103–118; BP diastolic 49–71; PULSE 69–90; RESP 18; TEMP 36–36.1; O2SAT 97–98; BMI 16.9
[2022-05-05 11:15] LABS: Chloride 97 mmol/L (98-107)
[2022-05-05 11:16] LABS: Potassium 3.2 mmoL/L (3.5-5.1); Sodium 136 mmol/L (136-145)
[2022-05-05 11:18] LABS: Alanine Aminotransferase 17 U/L (12-78); Albumin Level 2.9 g/dl (3.5-5.0); Alkaline Phosphatase 112 U/L (38-126); Anion Gap 11.2 mEq/L (5-15); Aspartate Amino Transferase 32 U/L (14-36); Bilirubin,Total 0.6 mg/dl (0.2-1.3); Blood Urea Nitrogen 17 mg/dl (7-17); Carbon Dioxide 31 mmol/L (22.0-30.0); Creatinine Clearance Estimated 33 mL/min (50-200); Estimated Glomerular Filt Rate 121 ml/min (>60); GFR (African American) 146 ML/MIN (>60); Globulin 2.8 g/dL (1.3-3.2); Total Protein,Serum 5.7 g/dl (6.3-8.2)
[2022-05-05 11:19] LABS: Calcium 8.4 mg/dl (8.4-10.2); Glucose 102 mg/dl (74-100)
[2022-05-05 11:23] LABS: Basophils % 0.3 % (0.1-2.0); Eosinophils % 0.5 % (0.1-12.0); Hematocrit 31.7 % (37.0-47.0); Hemoglobin 9.9 g/dL (12.2-16.2); Lymphocytes # 1.3 K/mm3 (0.7-4.5); Lymphocytes % 24.6 % (10-50); Mean Corpuscular HGB Conc 31.1 g/dL (31.8-35.4); Mean Corpuscular Hemoglobin 23.3 pg (27.0-31.2); Mean Corpuscular Volume 74.8 fl (81-99); Mean Platelet Volume 8.2 fl (7.4-10.4); Monocytes # 0.1 K/mm3 (0.1-1.0); Monocytes % 2.6 % (1.7-9.3); Neutrophils # 3.7 K/mm3 (1.8-7.8); Neutrophils % 72.1 % (37.0-80.0); Platelet Count 319 K/mm3 (142-424); Red Blood Count 4.23 M/mm3 (4.20-5.40); Red Cell Distribution Width 19.8 % (11.5-17.5); White Blood Count 5.2 K/mm3 (4.8-10.8)
--- NOTE | 2022-05-05 12:12 | PC.NURSE ---
MD notified of pt recent weight loss and todays labs. MD is ok with pt receiving treatment if pt is willing. Aquaculturist was consulted and educated pt and family about pt diet at home. Pt wants to get treatment at this time.
--- NOTE | 2022-05-05 12:15 | DIET.NUTRFU ---
RD consulted for weight loss, patient has lost 20+ over the course of her chemo tx. She triggers for malnutrition, low BMI has lost most of her fat tissue around her neck area and checks. Her extremities are very thin. She reports she drinks 2-3 boost/day and eats 3 meals. Family reports a couple bits here and a couple bites there. Avery started her on megace over 30 days ago. Marinol maybe next step for appetite stimulate. Daughters are home with her. Gave them multiple suggestions of high calorie/high protein foods to make up 6 small meals/day. She denies any nausea or GI distress. Just not hungry. Lacking some teeth, likes peanut butter and soft eggs. Also encouraged fortified foods for increased calories- suggested daughter to google different fortified foods like oatmeal and mashed potatoes. She likes ice cream and brownies- encouraged more often. Dried fruit. 3 whole ensure or boost 3 times/day, plus 3-4 small meals. If cannot maintain weight try marinol and then consider TF. When mentioned TF she shaking her head no . Provided contact information for any follow-up needed.
== END 2022-05-05 13:51 | disposition home or self-care (01) ==
LOC: INF 10:39
PROVIDERS: PCP Nurse Practitioner Family; Visit Provider Internal Medicine Medical Oncology
DX: Z45.2 Encounter for adjustment and management of vascular access device (principal); C25.9 Malignant neoplasm of pancreas, unspecified; Z51.11 Encounter for antineoplastic chemotherapy
CPT/HCPCS: 80053; 85025; 96413; 96417; J1642; J2405; J9201; J9264

== ENCOUNTER 2022-05-10 12:20 | Observation (INO) | payer MEDICARE, MEDICAID, SELFPAY ==
[2022-05-10] VITALS (20 sets, daily range): BP systolic 113–147; BP diastolic 60–98; PULSE 68–93; RESP 15–20; TEMP 36.7–37.1; O2SAT 93–100; BMI 16.5; BMI 16.0
--- NOTE | 2022-05-10 12:45 | XR_ITS ---
FINAL REPORT CLINICAL HISTORY: weak COMPARISON: 04/08/2022 FINDINGS: PORTABLE CHEST A chest port is present with the tip in the SVC. The heart is normal in size. The mediastinum is unremarkable. There is a little bit of scarring and volume loss in the the left lung . The right lung is clear. There is no pneumothorax. There are multiple surgical clips in the left axilla. The bony thorax is unremarkable. IMPRESSION: Scarring and volume loss in the left lung. Reviewed, Interpreted and Dictated by Noman Montanez MD Transcribed by Bev Massey Authenticated and [facility]
--- NOTE | 2022-05-10 12:48 | HMH.EDGENADL ---
Discharge Plan Disposition Patient Disposition: Admitted As Inpatient Condition: Fair Prescriptions Prescriptions: No Action lidocaine-prilocaine 2.5-2.5 % cream 2.5 g topical NEEDED PRN (Reason: numbing site) megestrol 40 mg tablet 40 mg PO DAILY hydrochlorothiazide 25 mg tablet 25 mg PO DAILY ondansetron 4 mg tablet,disintegrating 4 mg PO DAILY morphine 15 mg tablet 15 mg PO Q4H PRN (Reason: cancer pain) Qty: 180 0RF mirtazapine 7.5 mg tablet 7.5 mg PO DAILY potassium chloride 20 mEq tablet,ER particles/crystals 20 tab PO DAILY metoclopramide HCl [Reglan] 5 mg tablet 5 mg PO TIDP PRN (Reason: nausea and vomiting) Qty: 10 0RF Referrals Follow up/Referrals: Maryan Simpson APRN [Primary Care Provider] - See instructions Clinical Impressions Clinical Impression: Pancreatic cancer, Nausea, Acute dehydration Discharge ED Provider: Yves Vo General Adult HPI General Chief complaint: Weakness Stated complaint: Not eating/drinking, weak Time Seen by Provider: 05/10/22 12:40 History of Present Illness HPI narrative: Patient has a history of pancreatic cancer presents with a 1 month history of decreased intake and vomiting. Her daughter is the primary historian who states that over the last week her aforementioned symptoms have worsened. She has had weight loss and symptoms are described as moderate to severe although there is been no vomiting today. This been no diarrhea. She has had no fever there is been no productive cough. Related Data Home Medications Medication Instructions Recorded Confirmed hydrochlorothiazide 25 mg tablet 25 mg PO DAILY Fluid 03/31/22 05/05/22 ondansetron 4 mg disintegrating 4 mg PO DAILY Nausea & vomiting 03/31/22 05/05/22 tablet lidocaine-prilocaine 2.5 %-2.5 % 2.5 g topical NEEDED PRN 04/21/22 05/05/22 topical cream numbing site megestrol 40 mg tablet 40 mg PO DAILY Appetite stimulant 04/21/22 05/05/22 mirtazapine 7.5 mg tablet 7.5 mg PO DAILY Depression 04/28/22 05/05/22 potassium chloride 20 mEq 20 tab PO DAILY Diet supplement 04/28/22 05/05/22 tablet,extended release(part/cryst) Previous Rx's Medication Instructions Recorded morphine 15 mg immediate release 15 mg PO Q4H PRN cancer pain #180 04/07/22 tablet tabs metoclopramide HCl 5 mg tablet 5 mg PO TIDP PRN nausea and 04/30/22 (Reglan) vomiting #10 tabs Allergies Allergy/AdvReac Type Severity Reaction Status Date / Time No Known Allergies Allergy Verified 04/28/22 10:58 PFSH PFSH Medical History Chronic back pain History of breast cancer Hypertension Pancreatic cancer Surgical History History of bilateral tubal ligation History of section History of colonoscopy History of lumpectomy of left breast Family History Other Family history of cancer Family history of diabetes mellitus type II Family history of stroke Social History Smoking Status: Never smoker alcohol intake: never substance use type: denies use current occupational status: retired Travel in the last 8 weeks: None household members: significant other housing: other lives independently: Yes marital status: ROS Obtained: Yes All systems reviewed & no additional complaints except as documented Constitutional Constitutional: Reports system reviewed and no additional complaints, except as documented Eyes Eyes: Reports system reviewed and no additional complaints, except as documented ENT Ears, Nose, Mouth, and Throat: Reports system reviewed and no additional complaints, except as documented Cardiovascular Cardiovascular: Reports system reviewed and no additional complaints, except as documented Respiratory Respiratory: Re
--- NOTE | 2022-05-10 13:22 | PC.NURSE ---
ASSISTED PATIENT UP TO BSC. PATIENT HAD A SMALL LOOSE BM. PLACED NONSKID SOCKS ON PATIENT. ASSISTED PATIENT BACK TO BED. CALL LIGHT WITHIN REACH.
[2022-05-10 14:04] LABS: Basophils % 0.3 % (0.1-2.0); Eosinophils % 0.4 % (0.1-12.0); Hematocrit 29.9 % (37.0-47.0); Hemoglobin 9.2 g/dL (12.2-16.2); Lymphocytes # 0.5 K/mm3 (0.7-4.5); Lymphocytes % 36.5 % (10-50); Mean Corpuscular HGB Conc 30.9 g/dL (31.8-35.4); Mean Corpuscular Hemoglobin 22.7 pg (27.0-31.2); Mean Corpuscular Volume 73.4 fl (81-99); Mean Platelet Volume 8.4 fl (7.4-10.4); Monocytes % 0.6 % (1.7-9.3); Neutrophils # 0.9 K/mm3 (1.8-7.8); Neutrophils % 62.2 % (37.0-80.0); Platelet Count 183 K/mm3 (142-424); Red Blood Count 4.07 M/mm3 (4.20-5.40); White Blood Count 1.5 K/mm3 (4.8-10.8)
[2022-05-10 14:17] LABS: Chloride 99 mmol/L (98-107); Potassium 3.6 mmoL/L (3.5-5.1); Sodium 138 mmol/L (136-145)
[2022-05-10 14:19] LABS: Blood Urea Nitrogen 26 mg/dl (7-17); Creatinine Clearance Estimated 32 mL/min (50-200); Estimated Glomerular Filt Rate 121 ml/min (>60); GFR (African American) 146 ML/MIN (>60)
[2022-05-10 14:20] LABS: Alanine Aminotransferase 14 U/L (12-78); Albumin/Globulin Ratio 0.9 (1.1-1.8); Alkaline Phosphatase 119 U/L (38-126); Anion Gap 10.6 mEq/L (5-15); Aspartate Amino Transferase 28 U/L (14-36); Bilirubin,Total 0.5 mg/dl (0.2-1.3); Calcium 8.6 mg/dl (8.4-10.2); Carbon Dioxide 32 mmol/L (22.0-30.0); Globulin 3.2 g/dL (1.3-3.2); Glucose 106 mg/dl (74-100); Lipase 251 U/L (23-300); Total Protein,Serum 6.2 g/dl (6.3-8.2)
--- NOTE | 2022-05-10 14:44 | PC.NURSE ---
pt assisted to the bedside commode. pt does not have any needs at this time
[2022-05-10 16:17] LABS: Coronavirus 19, PCR Not Detected (NotDetected); Influenza A, PCR Not Detected (NotDetected); Influenza B, PCR Not Detected (NotDetected)
--- NOTE | 2022-05-10 17:04 | PC.NURSE ---
PT IS TAKING HER OWN PAIN MEDS , MORPHINE 15MG PO PER DR WILKERSON
--- NOTE | 2022-05-10 17:15 | PC.NURSE ---
HOUSE CALLED FOR BED
--- NOTE | 2022-05-10 17:39 | PC.NURSE ---
Called report to [facility]. Updated family on POC
--- NOTE | 2022-05-10 17:49 | PC.NURSE ---
Pt arrived to the floor at this time
--- NOTE | 2022-05-10 18:01 | EXP.HP ---
History of Present Illness *Admission Date: 05/10/22 *Reason for visit:: pain, nausea *History of present illness: Ms. Jean Baptiste is a 71-year-old female with recent diagnosis in January of pancreatic cancer. She has had progressive course with nausea, weight loss, clinical decline. Follows with oncology at [facility] (Dr. Varela). Her working diagnosis is adenocarcinoma of pancreas diagnosed 01/2022 in [place], by Dr. Savage. Staging [id number] borderline resectable. Started on chemotherapy and has finished 1 round (3 weeks). This is her week off. Has unfortunately continued to have a poor appetite. Daughter at bedside helps give history. Patient drinking very little every day, only enough to take her medication. No natasha emesis. Has tried multiple medications for stimulant of appetite and treatment of nausea, poor response to appetite stimulants. Pain is her main complaint. On 15 mg immediate release morphine every 4 hours. Having daily bowel movements. No fever, cough, chest pain, emesis. No blood in stool. Labs in the ER notable for neutropenia. Presented to the ER today due to continued weakness, loss of appetite, pain. Medicine consulted for admission. Will admit overnight and treat with IV fluids for gentle rehydration. Monitor for improvement in labs in the morning. We will also address pain and nausea. Patient states she has not had goals of care discussion with her oncologist however she is clear that she wants to be DNR. Also states she does not want a feeding tube. [facility] Medical History Chronic back pain History of breast cancer Hypertension Pancreatic cancer Surgical History History of bilateral tubal ligation History of section History of colonoscopy History of lumpectomy of left breast Family History Family history of stroke Family history of cancer Family history of diabetes mellitus type II Social History Smoking Status: Never smoker alcohol intake: never substance use type: denies use current occupational status: retired Travel in the last 8 weeks: None household members: significant other housing: other lives independently: Yes marital status: Review of Systems Review of Systems Review of systems (narrative): 14 point review of systems performed, pertinent positives and negatives as per HPI *Neurologic Neurologic: Reports system reviewed and no additional complaints, except as documented Meds Home Medications and Allergies Home Medications Medication Instructions Recorded Confirmed Type hydrochlorothiazide 25 mg tablet 25 mg PO DAILY Fluid 03/31/22 05/10/22 History megestrol 40 mg tablet 40 mg PO BID Appetite stimulant 04/21/22 05/10/22 History mirtazapine 7.5 mg tablet 7.5 mg PO HS Appetite 04/28/22 05/10/22 History stimulant/mood potassium chloride 20 mEq 20 tab PO DAILY Potassium 04/28/22 05/10/22 History tablet,extended release(part/cryst) replacement morphine 15 mg immediate release 15 mg PO Q4HP PRN cancer pain 05/10/22 05/10/22 History tablet New Prescriptions to Start Prescriptions: Allergies Allergy/AdvReac Type Severity Reaction Status Date / Time No Known Allergies Allergy Verified 04/28/22 10:58 Exam Data for Last 24 hours Vital signs and Labs for Last 24 Hours: Temp Pulse Resp BP Pulse Ox 98.7 F 84 20 119/72 99 05/10/22 17:48 05/10/22 17:48 05/10/22 17:48 05/10/22 17:48 05/10/22 17:44 Laboratory Results - last 24 hr 05/10/22 13:37: WBC 1.5 L*, RBC 4.07 L, Hgb 9.2 L, Hct 29.9 L, MCV 73.4 L, MCH 22.7 L, MCHC 30.9 L, RDW 20.0 H, Plt Count 183, MPV 8.4, Neut % (Auto) 62.2, Lymph % (Auto) 36.5, [place] % (Auto) 0.6 L, Eos % (Auto) 0.4, Baso % (Auto) 0.3, Neut # (Auto) 0.9 L*, Lymph #
[2022-05-10 18:16] LABS: Microscopic, Urine URINE MICROSCOPIC (MICROSCOPIC)
[2022-05-10 18:20] LABS: Appearance,Urine CLEAR (Clear); Blood, Urine Negative (Negative); Color,Urine DK YELLOW (Yellow); Glucose,Urine (UA) Negative (Negative); Ketones,Urine 1+ (Negative); Leukocyte Esterase,Urine Negative (Negative); Nitrate,Urine Negative (Negative); Protein,Urine TRACE (Negative); Specific Gravity, Urine 1.025 (1.005-1.030); Urobilinogen,Urine 0.2 EU/dl (0.2)
[2022-05-10 18:24] LABS: Bilirubin,Urine 2+ (Negative)
[2022-05-10 18:54] LABS: Squamous Epithelial Cell,Urine Occasional #/hpf (0-5); WBC,Urine Occasional #/hpf (0-3)
[2022-05-10 18:55] LABS: Amorphous Sediment,Urine 1+ /lpf; Bacteria,Urine 1+ /lpf; Mucus,Urine 1+ /lpf
[2022-05-11 04:00] VITALS: BP 122/52; PULSE 83; RESP 16; TEMP 36.6; O2SAT 98
[2022-05-11 05:58] VITALS: BMI 16.5
--- NOTE | 2022-05-11 06:35 | PC.NURSE ---
Pt has not voiced any c/o to staff t/o shift. No pain/n/v noted. Call light within reach.
[2022-05-11 06:51] LABS: Basophils % 0.3 % (0.1-2.0); Eosinophils % 1.2 % (0.1-12.0); Hematocrit 26.6 % (37.0-47.0); Hemoglobin 8.4 g/dL (12.2-16.2); Lymphocytes # 0.6 K/mm3 (0.7-4.5); Lymphocytes % 35.5 % (10-50); Mean Corpuscular HGB Conc 31.5 g/dL (31.8-35.4); Mean Corpuscular Hemoglobin 23.4 pg (27.0-31.2); Mean Corpuscular Volume 74.4 fl (81-99); Mean Platelet Volume 9.2 fl (7.4-10.4); Monocytes % 0.8 % (1.7-9.3); Neutrophils # 1.1 K/mm3 (1.8-7.8); Neutrophils % 62.3 % (37.0-80.0); Platelet Count 155 K/mm3 (142-424); Red Blood Count 3.58 M/mm3 (4.20-5.40); Red Cell Distribution Width 20.7 % (11.5-17.5); White Blood Count 1.7 K/mm3 (4.8-10.8)
[2022-05-11 07:01] LABS: Alanine Aminotransferase 11 U/L (12-78); Albumin Level 2.6 g/dl (3.5-5.0); Alkaline Phosphatase 107 U/L (38-126); Anion Gap 13.8 mEq/L (5-15); Aspartate Amino Transferase 23 U/L (14-36); Bilirubin,Total 0.5 mg/dl (0.2-1.3); Blood Urea Nitrogen 20 mg/dl (7-17); Calcium 8.2 mg/dl (8.4-10.2); Carbon Dioxide 29 mmol/L (22.0-30.0); Chloride 98 mmol/L (98-107); Creatinine Clearance Estimated 32 mL/min (50-200); Estimated Glomerular Filt Rate 156 ml/min (>60); GFR (African American) 189 ML/MIN (>60); Globulin 2.7 g/dL (1.3-3.2); Glucose 79 mg/dl (74-100); Magnesium 1.4 mg/dl (1.6-2.3); Potassium 3.8 mmoL/L (3.5-5.1); Sodium 137 mmol/L (136-145); Total Protein,Serum 5.3 g/dl (6.3-8.2)
[2022-05-11 07:07] LABS: INR 1.06 (0.9-1.1); Prothrombin Time 11.4 seconds (10.1-12.5)
[2022-05-11 07:38] VITALS: BP 144/69; PULSE 77; RESP 18; TEMP 36.7; O2SAT 99
--- NOTE | 2022-05-11 07:42 | HMH.PHAINT1 ---
Pharmacy Intervention Comments: Medication reconciliation completed via external fill history and patient interview. -Rekha Pino, PharmD Candidate 2022
[2022-05-11 08:35] VITALS: BMI 16.5
--- NOTE | 2022-05-11 11:33 | CT_ITS ---
FINAL REPORT TECHNIQUE: Axial images through the abdomen and pelvis were performed without contrast. This study was performed with techniques to keep radiation doses as low as reasonably achievable, (ALARA). Individualized dose reduction techniques using automated exposure control or adjustment of mA and/or kV according to the patient's size were employed. CLINICAL HISTORY: worsening abd pain; eval pancreatic cancer COMPARISON: 04/30/2022 FINDINGS: Abdomen: There is mild scarring in the lung bases. There is moderate pneumobilia. A low-attenuation focus in the right liver lobe appears to represent a cyst and measures 11 mm in diameter. There is a metallic biliary stent present and is unchanged in position. Multiple gallstones are seen within a contracted gallbladder. There is again noted to be marked dilatation of the pancreatic duct. The pancreatic duct measures up to 1.2 cm in diameter. There is a multilocular cystic collection adjacent to the tail of the pancreas. The collection measures approximately 8.3 x 4.8 cm. A component of this collection extends laterally and superior to the spleen. Overall it appears similar to the previous exam. There are multiple bilateral nonobstructing kidney stones with individual stones measuring up to 4 mm. Pelvis: The urinary bladder is unremarkable. The appendix is not visualized. The uterus lies midline. There is no pelvic mass or inflammation. IMPRESSION: Stable pancreatic duct dilatation. Stable multilocular mass adjacent to the tail the pancreas. Multiple gallstones in the gallbladder. Reviewed, Interpreted and Dictated by Noman Montanez MD Transcribed by Bev Massey Authenticated and [facility]
--- NOTE | 2022-05-11 11:35 | DIET.NUTRFU ---
Addendum entered by Michaela Martinez RD, LD 05/11/22 13:12: Spoke to Dr. Wiley about marinol and he feels maybe the appetite stimulates are over stimulating her and causing her abdominal pain. Plans to put all on hold and Dr. Varela can re-eval as outpatient. She did receive Ensure for lunch and consumed 50%. Will continue to follow amount of meal consumed and supplements. Her and her family have been educated on high calorie/high protein diet/food choices with multiple handouts provided in the infusion unit last week. Patient did remember seeing this RD in infusion last week about wt loss. Original Note: Has pancreatic CA, completed 1st round of chemo, poor appetite with wt loss. On megace and remeron, does not desire TF. Daughter helps with care. Met with patient and family last week in infusion office, reviewed supplement need and six small meals. Agreed to try high protein oatmeal and ensure TID with ice cream at dinner. Patient has lost 10kg in 30 days, eats only bites of foods. Denies nausea, is on morphine which can deplete appetite. Patient is alert and independent with most of her care, but does not seem realistic on dx outcomes. Provider plans to care POC and possible home with hospice.
--- NOTE | 2022-05-11 14:30 | EXP.ACUTE.PN ---
Subjective *Date: 05/11/22 *Time: 14:30 Interval history: Patient is had no vomiting during admission. Nausea responding well to antiemetics. Denies any shortness of breath, chest pain. Complains of abdominal pain which is mainly in the middle of her abdomen now. Had a loose bowel movement last night. Tolerating small portions (1/3-1/2) of her protein supplements. Staying hydrated. Labs reviewed and stable. Family at bedside, updated of plan. Medical Exam Vital signs and Labs for Last 24 Hours: Vital Signs Temp Pulse Pulse Resp BP BP Pulse Ox 05/11/22 07:38 98.0 F 77 18 144/69 H 99 05/11/22 04:00 98 F 83 16 122/52 L 98 05/10/22 20:00 98.1 F 89 16 147/78 H 93 L 05/10/22 18:00 96 05/10/22 17:48 98.7 F 84 20 119/72 05/10/22 17:44 71 18 117/67 99 05/10/22 17:30 71 18 113/75 99 05/10/22 17:00 71 18 122/60 99 05/10/22 16:30 70 18 114/67 99 05/10/22 16:00 71 18 117/60 99 05/10/22 15:30 69 18 115/98 H 99 05/10/22 15:00 72 18 127/64 99 05/10/22 14:45 70 18 128/70 99 05/10/22 17:40 98.8 F 80 17 117/67 98 05/10/22 14:37 83 128/70 97 Intake and Output 05/10/22 05/11/22 05/11/22 23:59 07:59 15:59 Output Total 100 / 200 100 / 200 Balance -100 / -200 -100 / -200 Output: Output, Urine Amount 100 / 200 100 / 200 Other: Weight 39.718 kg 40.823 kg 40.82 kg Patient Weight 05/11/22 23:59 Weight 40.82 kg Laboratory Results - last 24 hr 05/10/22 15:34: SARS-CoV-2 (PCR) Not detected, Influenza A Untype (PCR) Not detected, Influenza Type B (PCR) Not detected 05/10/22 16:09: Urine Color Dk yellow, Urine Appearance Clear, Urine pH 6.0, Ur Specific Boswell 1.025, Urine Protein Trace, Urine Glucose (UA) Negative, Urine Ketones 1+, Urine Blood Negative, Urine Nitrate Negative, Urine Bilirubin 2+ A, Urine Urobilinogen 0.2, Ur Leukocyte Esterase Negative, Urine RBC None, Urine WBC Occasional, Ur Squamous Epith Cells Occasional, Amorphous Sediment 1+, Urine Bacteria 1+, Urine Mucus 1+ 05/11/22 06:25: WBC 1.7 L*, RBC 3.58 L, Hgb 8.4 L, Hct 26.6 L, MCV 74.4 L, MCH 23.4 L, MCHC 31.5 L, RDW 20.7 H, Plt Count 155, MPV 9.2, Neut % (Auto) 62.3, Lymph % (Auto) 35.5, Wright % (Auto) 0.8 L, Eos % (Auto) 1.2, Baso % (Auto) 0.3, Neut # (Auto) 1.1 L, Lymph # (Auto) 0.6 L, Wright # (Auto) 0.0 L, Eos # (Auto) 0.0, Baso # (Auto) 0.0 05/11/22 06:25: PT 11.4, INR 1.06 05/11/22 06:25: Sodium 137, Potassium 3.8, Chloride 98, Carbon Dioxide 29, Anion Gap 13.8, BUN 20 H, Creatinine 0.40 L, Estimated Creat Clear 32, Estimated GFR 156, Est GFR ( Amer) 189 D, Glucose 79 D, Calcium 8.2 L, Magnesium 1.4 L, Total Bilirubin 0.5, AST 23, ALT 11 L, Alkaline Phosphatase 107, Total Protein 5.3 L, Albumin 2.6 L D, Globulin 2.7, Albumin/Globulin Ratio 1.0 L I & O for Labs for Last 24 Hours: Intake & Output 05/08/22 05/09/22 05/10/22 05/11/22 23:59 23:59 23:59 23:59 Output Total 200 / 200 Balance -200 / -200 Weight 39.718 kg 40.82 kg Constitutional: Present no acute distress, cachectic and chronically ill appearing Head: Present atraumatic and normocephalic ENT: Present normal exam Comment:: loss of bilateral orbital fat, bitemporal wasting. Neck: Present normal inspection Respiratory: Present normal respiratory effort; Absent accessory muscle use, rhonchi, wheezes or crackles Cardiac: Present Reg Rate and Rhythm GI: Present tenderness (mild in epigastric region) and normal bowel sounds Extremities: Present normal inspection and full ROM Comment:: thin Skin: Present intact; Absent erythema Neuro: Present Grossly Intact, alert, awake, oriented x 3 and moves all extremities Assessment and Plan *Assessment and plan (1) Prerenal azotemia: Status: Acute Category: Medical Code(s): R79.89 - Other specified abnormal findings of blood chemistry (2) Acute dehydration: Status: Acute Category: Medical
[2022-05-11 15:21] VITALS: BP 110/49; PULSE 76; RESP 16; TEMP 36.8; O2SAT 99
[2022-05-11 15:32] LABS: Lipase 96 U/L (23-300)
--- NOTE | 2022-05-11 18:49 | PC.NURSE ---
PT HAS COMPLAINED OF NAUSEA AND ABD PAIN T/O SHIFT, RELIEVED BY PRESCRIBED MEDICATIONS. ALERT X 2 STAGE 2 WITH DSG CDI ON COCCYX. PT HAS ATE LESS THAN 25% OF MEALS TODAY, ADEQUATE PO INTAKE OF FLUIDS WITH ADEQUATE OUTPUT. PT HAS REST MAJORITY OF SHIFT WITH FAMILY AT BEDSIDE. NO QUESTIONS OR CONCERNS AT THIS TIME.
[2022-05-11 20:00] VITALS: BP 160/71; PULSE 102; RESP 16; TEMP 36.6; O2SAT 98
[2022-05-12 04:00] VITALS: BP 136/68; PULSE 80; RESP 16; TEMP 36.7; O2SAT 96
[2022-05-12 05:00] VITALS: BMI 16.5
--- NOTE | 2022-05-12 05:49 | PC.NURSE ---
Pt has c/o n/v and abd pain t/o shift. Phenergan/Zofran and Dilaudid administered per AUG. Pt able to ambulate to BSC with 1 x assist. Bed alarm on for pt safety. Call light within reach.
[2022-05-12 07:44] VITALS: BP 140/86; PULSE 115; RESP 16; TEMP 36.6; O2SAT 99
--- NOTE | 2022-05-12 11:38 | EXP.ACUTE.PN ---
Subjective *Date: 05/12/22 *Time: 11:38 Interval history: Continues to complain of abdominal pain. Mild nausea. No emesis, diarrhea, chest pain, shortness of breath. Stable on room air. Tolerating clear liquids well in the room on exam. Feels her pain medication helps but is not coming frequently enough. Does not like that she has to ask for it. Requested that it be scheduled. Initially said she wanted to go home, clarified that this was because she did not feel her pain was being treated frequently enough. She is still interested in having her cyst drained at . Continues to await transfer. Medical Exam Vital signs and Labs for Last 24 Hours: Vital Signs Temp Pulse Resp BP Pulse Ox 05/12/22 07:44 97.8 F 115 H 16 140/86 99 05/12/22 04:00 98.1 F 80 16 136/68 96 05/11/22 20:00 98 F 102 H 16 160/71 H 98 05/11/22 15:21 98.2 F 76 16 110/49 L 99 Intake and Output 05/11/22 05/12/22 05/12/22 23:59 07:59 15:59 Intake Total 1268 / 1268 Output Total 100 / 300 100 / 100 Balance -100 / -60 1168 / 1168 Intake: Intake, Total IV Amount 1268 / 1268 Ringers Solution,Lactated 1,000 1268 / 1268 ml @ 125 mls/hr IV .Q8H [facility] Rx #:[id number] Output: Output, Urine Amount 100 / 300 100 / 100 Other: Number of Unmeasured Voids 1 Weight 40.82 kg Patient Weight 05/12/22 23:59 Weight 40.82 kg Laboratory Results - last 24 hr 05/11/22 06:25: Lipase 96 I & O for Labs for Last 24 Hours: Intake & Output 05/09/22 05/10/22 05/11/22 05/12/22 23:59 23:59 23:59 23:59 Intake Total 240 / 240 1268 / 1268 Output Total 300 / 300 100 / 100 Balance -60 / -60 1168 / 1168 Weight 39.718 kg 40.82 kg 40.82 kg Constitutional: Present no acute distress, cachectic and chronically ill appearing Head: Present atraumatic and normocephalic ENT: Present normal exam Comment:: loss of bilateral orbital fat, bitemporal wasting. Neck: Present normal inspection Respiratory: Present normal respiratory effort; Absent accessory muscle use, rhonchi, wheezes or crackles Cardiac: Present Reg Rate and Rhythm GI: Present tenderness (mild in epigastric region) and normal bowel sounds Extremities: Present normal inspection and full ROM Comment:: thin Skin: Present intact; Absent erythema Neuro: Present Grossly Intact, alert, awake, oriented x 3 and moves all extremities Assessment and Plan *Assessment and plan (1) Severe protein-calorie malnutrition: Status: Acute Category: Medical Code(s): E43 - Unspecified severe protein-calorie malnutrition (2) Acute dehydration: Status: Acute Category: Medical Code(s): E86.0 - Dehydration (3) Prerenal azotemia: Status: Acute Category: Medical Code(s): R79.89 - Other specified abnormal findings of blood chemistry (4) Abdominal pain: Status: Acute Category: Medical Code(s): R10.9 - Unspecified abdominal pain (5) Moderate nausea and vomiting: Status: Acute Category: Medical Code(s): R11.2 - Nausea with vomiting, unspecified (6) Pancreatic cancer: Status: Acute Category: Medical Code(s): C25.9 - Malignant neoplasm of pancreas, unspecified (7) Chronic pain after cancer treatment: Status: Acute Category: Medical Code(s): G89.3 - Neoplasm related pain (acute) (chronic) Plan 71-year-old female with pancreatic cancer. Has had significant weight loss over the past 3-1/2 months. Poor p.o. intake. Concern for dehydration and pain resistant to current treatment. Admitted to medicine for further management. Currently awaiting transfer to for surgical oncology evaluation and drainage of pancreatic cyst. Problems addressed as follows: Severe protein calorie malnutrition Dehydration Prerenal azotemia - Tolerating rehydration, Nutrition consulted - tolerating ~1/2 of protein supplement - Pt not interested
--- NOTE | 2022-05-12 13:33 | HMH.PTEV ---
Physical Therapy Evaluation Rehab PT IP Evaluation Start: 05/11/22 16:44 Freq: ONCE Status: Active Protocol: Document 05/12/22 13:29 [facility] (Rec: 05/12/22 13:33 [facility] [id number]) Subjective/History History History Ms. Jean Baptiste is a 71-year-old female with recent diagnosis in January of pancreatic cancer . She has had progressive course with nausea, weight loss, clinical decline. Follows with oncology at [facility] (Dr Gio Varela). Subjective Subjective Pt's main c/o nausea and stomach pain - does not wish to move much afraid to aggravate pain Rehab PT IP Eval Objective Appearance Patient Behavior Fearful,Resistive to Care Patient Orientation Place,Name,Birthday,Situation Difficulty following instructions none Speech Pattern Appropriate Balance Dynamic Sitting Balance Ability Good Transfers Bed Transfer Ability Supervision/Stand by,Contact Guard/Hand Hold Rehab PT IP prob,goals,plan Problems Date of Evaluation: 05/12/22 Rehab Potential Rehab Potential Poor Plan PT Intervention Plan Bed Mobility,Transfers,Gait, Balance,Self care,Safety, Therapeutic Exercise PT Plan Frequency BID Duration LOS Discharge Goals Bed Transfer Ability Contact Guard/Hand Hold Discharge Plan PT Discharge Plan Pt to be seen while in H - unsure of pt's willingness to particpate as it took x 3 to get pt to [facility] for initial eval . If pt continues decline may be hospice appropriate. G -code Required Yes Eval Complexity Eval Charge Codes 02362 - Moderate Complexity G Codes PT Current Status Mobility PT Current Status Modifier CJ-At least 20% but less than 40% impaired, limited or restricted PT Goal Status Mobility PT Goal Status Modifer CJ-At least 20% but less than 40% impaired, limited or restricted PHYSICIAN CERTIFICATION: I certify the specified therapy services for Corry Jean Baptiste are required, authorized, and reviewed every 30 days
--- NOTE | 2022-05-12 13:40 | HMH.OTEV ---
OT Inpatient Evaluation Rehab OT IP Evaluation Start: 05/11/22 16:44 Freq: ONCE Status: Complete Protocol: Document 05/12/22 13:27 [facility] (Rec: 05/12/22 13:40 [facility] [id number]) Rehab OT IP Assessment Subjective History Pt oriented x 3 on arrival. Pt agreeable to engage in therapy evaluation. Pt was admitted via ED on 05/10/22 due to pain and nausea. Prior to being in the hospital, pt lived at home alone. Pt reports she was independent with all ADLs. Pt also claims she was independent with most IADLs such as cleaning, cooking, and laundry. Pt does have her sister complete grocery shopping for her. Pt used a cane during ambulation Pt has a past medical history of: Chronic back pain History of breast cancer Hypertension Pancreatic cancer Subjective I am cold. Objective Patient Orientation Person,Place,Birthday Upper Extremity Gross ROM Min Limitation <25% Shoulder ROM Limitations Muscle Weakness Elbow ROM Limitations Muscle Weakness Wrist Limitations of Range of Motion Muscle Weakness Bed Mobility bed mobility-scooting,bed mobility - supine/sit,bed mobility - rolling Assist Level Minimal x 2 (25% assist) Rehab OT IP prob,goals,plan Problems Date of Evaluation: 05/12/22 OT IP Problems Bed Mobility,Transfers,Balance ,Self care,Safety Rehab Potential Rehab Potential Good Equipment Needs Assistive Devices Rolling / Wheeled Walker Plan OT intervention Plan Bed Mobility,Transfers,Balance ,Self care,Safety,Therapeutic Exercise OT Plan Frequency BID Duration LOS Discharge Goals Bed Mobility Ability Standby Assistance Sit to Stand Chair Transfer Ability Contact Guard/Hand Hold Chair Transfer Ability Contact Guard/Hand Hold Chair Transfer Technique Sit to/from Ambulatory Chair Transfer Assistive Devices Rolling Walker Feeding Ability Assist with Tray Set Up Lower Body Dressing Ability Assistance X1 Upper Bod
[2022-05-12 16:00] VITALS: BP 105/46; PULSE 103; RESP 16; TEMP 37.3; O2SAT 96
--- NOTE | 2022-05-12 18:17 | PC.NURSE ---
PT HAS BEEN PLEASANT THIS SHIFT WITH LESS C/O PAIN AND NAUSEA COMPARED TO YESTERDAY. PAINED MANAGED WITH PRESCRIBED [facility]IN [facility], PT TOLERATING VERY WELL. X1 C/O NAUSEA RELIEVED WITH PRESCRIBED ZOFRAN. ALERT X2. NO EPISODES OF DIARRHEA THIS SHIFT. NO CONCERNS VOICED AT THIS TIME. CB AND PERSONAL ITEMS WITHIN REACH.
[2022-05-12 20:00] VITALS: BP 117/60; PULSE 72; RESP 16; TEMP 36.8; O2SAT 98
--- NOTE | 2022-05-13 02:32 | PC.NURSE ---
Sergio with [facility] transfer called for update, no bed available at this time.
[2022-05-13 04:00] VITALS: BP 101/51; PULSE 79; RESP 16; TEMP 36.8; O2SAT 97
[2022-05-13 04:25] VITALS: BMI 18.6
--- NOTE | 2022-05-13 06:25 | PC.NURSE ---
Pt has done well /o the night. Scheduled pain medication administered. Pt states this is managing her pain level well. No c/o n/v. Call light within reach.
[2022-05-13 08:00] VITALS: BP 102/55; PULSE 69; RESP 16; TEMP 36.8; O2SAT 96
--- NOTE | 2022-05-13 09:46 | EXP.DC.SUM ---
General Admission date:: 05/10/22 Discharge date: 05/13/22 HPI HPI HPI: Ms. Jean Baptiste is a 71-year-old female with recent diagnosis in January of pancreatic cancer. She has had progressive course with nausea, weight loss, clinical decline. Follows with oncology at [facility] (Dr. Varela). Her working diagnosis is adenocarcinoma of pancreas diagnosed 01/2022 in [place], by Dr. Savage. Staging [id number] borderline resectable. Started on chemotherapy and has finished 1 round (3 weeks). This is her week off. Has unfortunately continued to have a poor appetite. Daughter at bedside helps give history. Patient drinking very little every day, only enough to take her medication. No natasha emesis. Has tried multiple medications for stimulant of appetite and treatment of nausea, poor response to appetite stimulants. Pain is her main complaint. On 15 mg immediate release morphine every 4 hours. Having daily bowel movements. No fever, cough, chest pain, emesis. No blood in stool. Labs in the ER notable for neutropenia. Presented to the ER today due to continued weakness, loss of appetite, pain. Medicine consulted for admission. Will admit overnight and treat with IV fluids for gentle rehydration. Monitor for improvement in labs in the morning. We will also address pain and nausea. Patient states she has not had goals of care discussion with her oncologist however she is clear that she wants to be DNR. Also states she does not want a feeding tube. Hospital Course Hospital Course Hospital Course: 71-year-old female with pancreatic cancer.? Has had significant weight loss over the past 3-1/2 months.? Poor p.o. intake.? Concern for dehydration and pain resistant to current treatment.? Admitted to medicine for further management.? Transition to IV pain control, nutrition consulted, started on IV fluids. Patient remained stable with scheduled pain medication. Tolerating portions of her nutritional supplement. Imaging showed concern for persistent pancreatic pseudocyst which is suspicious for the cause of some of her pain or at least a culprit in addition to her pancreatic cancer. Discussed case with surgical oncology at , attempts to transfer unsuccessful due to lack of bed availability. Given patient's clinical stability, will discharge home with pain control and supplementation for nutrition. Plan for close follow-up with subspecialist. Problems addressed during hospitalization as follows Severe protein calorie malnutrition Dehydration Prerenal azotemia, resolved -Started on IV fluids. Tolerated well with improvement in lab abnormalities. Nutrition was consulted who recommended supplementation. Patient tolerating Ensure with meals. Continues to have poor p.o. intake but managing fairly well. Pain remained stable with scheduled pain control. Appetite stimulants held during hospitalization out of concern that they are adding to her pain is a suspected component of her pain as hunger pains. Continue with Zofran for nausea. -Patient has stated she has no interest in a feeding tube. Pancreatic cancer Abdominal pain - Tolerating Dilaudid every 4 hours. Dosed equivalent to her home morphine regimen. Plan to transition back to oral morphine at discharge. Nausea controlled with Zofran. Repeat CT of abdomen showed stable pancreatic pseudocyst. Close follow-up with following providers: Scheduled for follow-up with Dr. Varela/oncology on Wednesday 05/16 at [facility] Follow-up with surgical oncology at (Dr. Patten), office will call with appt. Exam Data for Last 24 hours Vital signs and Labs for Last 24 Hours: Temp Pulse Resp BP Pulse Ox 98.3 F 79 16 101/51 L 97 05/13/22 04:00 05/13/22 04:00 05/13/22 04:00 05/13/22 04:00 05/13/22 04:00 I & O for Last 24 hours: Intake & Output 05/10/22 05/11/22 05/12/22 05/13/22 23:59 23:59 23:59 23:59 Intake Total 240 / 240 3152 / 3152 Output Total 300
[2022-05-13 11:37] LABS: Basophils % 0.7 % (0.1-2.0); Eosinophils % 0.2 % (0.1-12.0); Hematocrit 29.3 % (37.0-47.0); Hemoglobin 9.1 g/dL (12.2-16.2); Lymphocytes % 28.4 % (10-50); Mean Corpuscular Volume 74.3 fl (81-99); Mean Platelet Volume 10.2 fl (7.4-10.4); Monocytes # 0.2 K/mm3 (0.1-1.0); Neutrophils # 2.3 K/mm3 (1.8-7.8); Neutrophils % 65.7 % (37.0-80.0); Platelet Count 181 K/mm3 (142-424); Red Blood Count 3.94 M/mm3 (4.20-5.40); Red Cell Distribution Width 20.9 % (11.5-17.5); White Blood Count 3.5 K/mm3 (4.8-10.8)
[2022-05-13 11:42] LABS: Chloride 99 mmol/L (98-107)
[2022-05-13 11:43] LABS: Sodium 135 mmol/L (136-145)
[2022-05-13 11:46] LABS: Anion Gap 8.9 mEq/L (5-15); Blood Urea Nitrogen 15 mg/dl (7-17); Calcium 7.9 mg/dl (8.4-10.2); Carbon Dioxide 30 mmol/L (22.0-30.0); Creatinine Clearance Estimated 36 mL/min (50-200); Estimated Glomerular Filt Rate 121 ml/min (>60); GFR (African American) 146 ML/MIN (>60); Glucose 82 mg/dl (74-100)
[2022-05-13 11:51] LABS: Potassium 2.9 mmoL/L (3.5-5.1)
--- NOTE | 2022-05-13 11:56 | PC.NURSE ---
reported critical labs to dr. majano. k- 2.9, phos 2.0
== END 2022-05-13 13:30 | disposition home or self-care (01) ==
LOC: ER 17:14 → 2ND 17:39
PROVIDERS: Admitting Provider Internal Medicine Adolescent Medicine; Emergency Provider Emergency Medicine; PCP Nurse Practitioner Family; Visit Provider Internal Medicine Adolescent Medicine
DX: E86.0 Dehydration (principal); C25.2 Malignant neoplasm of tail of pancreas; G89.3 Neoplasm related pain (acute) (chronic); E43 Unspecified severe protein-calorie malnutrition; Z68.1 Body mass index [BMI] 19.9 or less, adult; R11.2 Nausea with vomiting, unspecified
CPT/HCPCS: G0378; 36415; 71045; 74176; 80048; 80053; 81001; 83690; 83735; 84100; 85025; 85610; 97110; 97162; 97166; 99285; C9803; J1642; J2405; J3475; U0003; U0005

== ENCOUNTER 2022-05-16 09:37 | Outpatient (CLI) | payer MEDICARE, MEDICAID, SELFPAY ==
[2022-05-16 09:42] VITALS: BMI 16.7
[2022-05-16 10:19] LABS: Basophils % 0.6 % (0.1-2.0); Chloride 97 mmol/L (98-107); Eosinophils # 0.1 K/mm3 (0.0-0.4); Eosinophils % 3.5 % (0.1-12.0); Hematocrit 31.7 % (37.0-47.0); Lymphocytes # 0.9 K/mm3 (0.7-4.5); Lymphocytes % 28.5 % (10-50); Mean Corpuscular HGB Conc 31.5 g/dL (31.8-35.4); Mean Corpuscular Hemoglobin 23.6 pg (27.0-31.2); Mean Corpuscular Volume 75.1 fl (81-99); Monocytes # 0.4 K/mm3 (0.1-1.0); Monocytes % 13.1 % (1.7-9.3); Neutrophils # 1.6 K/mm3 (1.8-7.8); Neutrophils % 54.3 % (37.0-80.0); Platelet Count 540 K/mm3 (142-424); Red Blood Count 4.23 M/mm3 (4.20-5.40); Red Cell Distribution Width 23.2 % (11.5-17.5); Sodium 136 mmol/L (136-145)
[2022-05-16 10:22] LABS: Alanine Aminotransferase 15 U/L (12-78); Albumin Level 2.6 g/dl (3.5-5.0); Alkaline Phosphatase 94 U/L (38-126); Anion Gap 13.7 mEq/L (5-15); Aspartate Amino Transferase 25 U/L (14-36); Bilirubin,Total 0.7 mg/dl (0.2-1.3); Blood Urea Nitrogen 12 mg/dl (7-17); Carbon Dioxide 28 mmol/L (22.0-30.0); Creatinine Clearance Estimated 33 mL/min (50-200); Estimated Glomerular Filt Rate 98 ml/min (>60); GFR (African American) 119 ML/MIN (>60); Globulin 2.5 g/dL (1.3-3.2); Total Protein,Serum 5.1 g/dl (6.3-8.2)
[2022-05-16 10:23] LABS: Calcium 7.9 mg/dl (8.4-10.2); Glucose 89 mg/dl (74-100); Potassium 2.7 mmoL/L (3.5-5.1)
--- NOTE | 2022-05-16 10:25 | PC.NURSE ---
damián cruz from lab called critical K+ level of 2.7. lab result, name, and repeated and verified. notified, no new orders at this time.
[2022-05-16 10:50] VITALS: BP 110/63; PULSE 89; RESP 18; TEMP 36.3; O2SAT 99
[2022-05-16 11:30] VITALS: BP 115/65; PULSE 93; RESP 18; O2SAT 99
[2022-05-16 11:53] VITALS: BP 112/62; PULSE 91; RESP 18; O2SAT 98
[2022-05-16 12:30] VITALS: BP 120/66; PULSE 87; RESP 18; O2SAT 99
[2022-05-16 13:00] VITALS: BP 118/63; PULSE 84; RESP 18; O2SAT 99
== END 2022-05-16 13:20 | disposition home or self-care (01) ==
LOC: INF 09:38
PROVIDERS: PCP Nurse Practitioner Family; Visit Provider Internal Medicine Medical Oncology
DX: C25.9 Malignant neoplasm of pancreas, unspecified (principal); Z45.2 Encounter for adjustment and management of vascular access device
CPT/HCPCS: 80053; 85025; 96365; 96366; J1642

== ENCOUNTER 2022-06-02 10:40 | Outpatient (CLI) | payer MEDICARE, MEDICAID, SELFPAY ==
[2022-06-02 10:46] VITALS: BMI 17.4
[2022-06-02 11:26] LABS: Alanine Aminotransferase 17 U/L (12-78); Albumin Level 2.6 g/dl (3.5-5.0); Alkaline Phosphatase 115 U/L (38-126); Anion Gap 8.8 mEq/L (5-15); Aspartate Amino Transferase 26 U/L (14-36); Bilirubin,Total 0.4 mg/dl (0.2-1.3); Blood Urea Nitrogen 20 mg/dl (7-17); Calcium 8.1 mg/dl (8.4-10.2); Carbon Dioxide 23 mmol/L (22.0-30.0); Chloride 111 mmol/L (98-107); Creatinine Clearance Estimated 34 mL/min (50-200); Estimated Glomerular Filt Rate 82 ml/min (>60); GFR (African American) 99 ML/MIN (>60); Globulin 2.5 g/dL (1.3-3.2); Glucose 117 mg/dl (74-100); Potassium 3.8 mmoL/L (3.5-5.1); Sodium 139 mmol/L (136-145); Total Protein,Serum 5.1 g/dl (6.3-8.2)
[2022-06-02 11:28] LABS: Basophils % 0.7 % (0.1-2.0); Eosinophils # 0.1 K/mm3 (0.0-0.4); Hemoglobin 10.3 g/dL (12.2-16.2); Lymphocytes # 1.5 K/mm3 (0.7-4.5); Lymphocytes % 23.8 % (10-50); Mean Corpuscular HGB Conc 31.2 g/dL (31.8-35.4); Mean Corpuscular Hemoglobin 24.6 pg (27.0-31.2); Mean Corpuscular Volume 78.9 fl (81-99); Mean Platelet Volume 8.5 fl (7.4-10.4); Monocytes # 0.5 K/mm3 (0.1-1.0); Monocytes % 8.4 % (1.7-9.3); Neutrophils % 65.1 % (37.0-80.0); Platelet Count 295 K/mm3 (142-424); Red Blood Count 4.18 M/mm3 (4.20-5.40); Red Cell Distribution Width 24.5 % (11.5-17.5); White Blood Count 6.1 K/mm3 (4.8-10.8)
== END 2022-06-02 11:50 | disposition home or self-care (01) ==
LOC: INF 10:42
PROVIDERS: PCP Nurse Practitioner Family; Visit Provider Internal Medicine Medical Oncology
DX: C25.9 Malignant neoplasm of pancreas, unspecified (principal); Z45.2 Encounter for adjustment and management of vascular access device
CPT/HCPCS: 36591; 80053; 85025; J1642

== ENCOUNTER 2022-06-30 13:20 | Outpatient (CLI) | payer MEDICARE, MEDICAID, SELFPAY ==
[2022-06-30 13:24] VITALS: BMI 16.0
[2022-06-30 14:08] LABS: Chloride 105 mmol/L (98-107); Potassium 4.3 mmoL/L (3.5-5.1); Sodium 137 mmol/L (136-145)
[2022-06-30 14:11] LABS: Alanine Aminotransferase 17 U/L (12-78); Albumin/Globulin Ratio 1.3 (1.1-1.8); Alkaline Phosphatase 51 U/L (38-126); Aspartate Amino Transferase 20 U/L (14-36); Bilirubin,Total 0.6 mg/dl (0.2-1.3); Blood Urea Nitrogen 16 mg/dl (7-17); Creatinine Clearance Estimated 32 mL/min (50-200); Estimated Glomerular Filt Rate 98 ml/min (>60); GFR (African American) 119 ML/MIN (>60); Globulin 2.3 g/dL (1.3-3.2); Glucose 114 mg/dl (74-100); Total Protein,Serum 5.3 g/dl (6.3-8.2)
[2022-06-30 14:12] LABS: Basophils % 0.3 % (0.1-2.0); Eosinophils % 0.2 % (0.1-12.0); Hematocrit 39.5 % (37.0-47.0); Hemoglobin 12.2 g/dL (12.2-16.2); Lymphocytes # 0.9 K/mm3 (0.7-4.5); Lymphocytes % 10.8 % (10-50); Mean Corpuscular HGB Conc 30.9 g/dL (31.8-35.4); Mean Corpuscular Hemoglobin 25.9 pg (27.0-31.2); Mean Corpuscular Volume 83.8 fl (81-99); Mean Platelet Volume 7.7 fl (7.4-10.4); Monocytes # 0.4 K/mm3 (0.1-1.0); Monocytes % 4.2 % (1.7-9.3); Neutrophils # 7.1 K/mm3 (1.8-7.8); Neutrophils % 84.5 % (37.0-80.0); Platelet Count 287 K/mm3 (142-424); Red Blood Count 4.72 M/mm3 (4.20-5.40); Red Cell Distribution Width 20.3 % (11.5-17.5); White Blood Count 8.5 K/mm3 (4.8-10.8)
[2022-06-30 14:48] LABS: Anion Gap 10.3 mEq/L (5-15); Carbon Dioxide 26 mmol/L (22.0-30.0)
== END 2022-06-30 14:23 | disposition home or self-care (01) ==
LOC: INF 13:21
PROVIDERS: PCP Nurse Practitioner Family; Visit Provider Internal Medicine Medical Oncology
DX: C25.9 Malignant neoplasm of pancreas, unspecified (principal); Z45.2 Encounter for adjustment and management of vascular access device
CPT/HCPCS: 36591; 80053; 85025; J1642

== ENCOUNTER → 2022-07-08 09:48 | Outpatient (CLI) | payer MEDICARE, MEDICAID, SELFPAY ==
--- NOTE | 2022-07-08 09:57 | CT_ITS ---
FINAL REPORT CLINICAL HISTORY: PANCREATIC CANCER PT CONFUSED.... WOULD NOT HOLD STILL... BEST IMAGES POSSIBLE FINDINGS: After the administration of IV contrast, axial images of the head were obtained without contrast. Coronal reformatted images were also obtained. This study was performed with techniques to keep radiation doses as low as reasonably achievable (ALARA). Individualized dose reduction techniques using automated exposure control or adjustment of mA and/or kV according to the patient''s size were employed. There is generalized age-appropriate atrophy. Periventricular low-attenuation areas are seen consistent with mild chronic ischemic changes. There is no evidence of intracranial hemorrhage or mass. There is no evidence of acute infarct. There is no evidence of shift of the midline structures. No skull abnormality is seen on the bone window images. There is no evidence of abnormal contrast enhancement. IMPRESSION: Atrophy and mild periventricular chronic ischemic changes. No acute intracranial abnormality identified. Reviewed, Interpreted and Dictated by Koko Garcia III, MD Transcribed by Bertha Tolentino Authenticated and [facility] [place] [place]
--- NOTE | 2022-07-08 09:57 | CT_ITS ---
FINAL REPORT TECHNIQUE: After the administration of oral and intravenous contrast, axial images were obtained through the abdomen and pelvis by computed tomography. The study was performed with techniques to keep radiation dose as low as reasonably achievable, (ALARA). Individual dose reduction techniques using automated exposure control or adjustment of mA and/or kV according to the patient's size were employed. CLINICAL HISTORY: PANCREATIC CANCER PT CONFUSED... WOULDNT NOT FOLLOW INSTRUCTIONS WELL, DRANK SOME ORAL CONTRAST COMPARISON: 05/11/2022 FINDINGS: Abdomen: There are several small hepatic cysts which are stable. Common bile duct stent is present. Note is made of gallstones in the gallbladder. There is air in the biliary system. There is significant pancreatic ductal dilatation measuring up to 13 mm, stable. Again identified is a mass in the uncinate process of the pancreas involving the proximal SMA and SMV. Mass in this region measures approximately 21 mm in transverse dimension, previously measured 29 mm. There has been interval improvement in the left upper quadrant perisplenic fluid collections. The component laterally measures 62 mm, previously measured 97 mm. Other fluid collections are similarly smaller. There is a small left renal stone. Small right renal cysts are identified. There is no new mass or adenopathy. The adrenals are normal. The aorta is normal in caliber. Pelvis: The appendix is not identified. The urinary bladder is unremarkable. There is no free fluid or adenopathy. IMPRESSION: Partially improved uncinate process mass. Partially improved left upper quadrant fluid collections. No new mass or adenopathy. Reviewed, Interpreted and Dictated by Koko Garcia III, MD Transcribed by Bertha Tolentino Authenticated and [facility]
--- NOTE | 2022-07-08 09:57 | CT_ITS ---
FINAL REPORT CLINICAL HISTORY: PANCREATIC CANCER FINDINGS: Axial CT images of the chest were obtained with contrast. Coronal reformatted images were also obtained. This study was performed with techniques to keep radiation doses as low as reasonably achievable, (ALARA). Individualized dose reduction techniques using automated exposure control or adjustment of mA and/or KV according to the patient''''s size were employed. There is no evidence of mediastinal or hilar mass or adenopathy.No axillary mass or adenopathy is identified. On the lung window images, no suspicious pulmonary mass or nodule is identified. There is postoperative changes in the left breast and left axilla. Left subclavian chest port is present. No localized pulmonary inflammatory process is identified. There is a calcified granuloma in the left lower lobe. Note is made of mild scarring. IMPRESSION: No mass or localized inflammatory process. Reviewed, Interpreted and Dictated by Koko Garcia III, MD Transcribed by Bertha Tolentino Authenticated and [facility]
== END ==
PROVIDERS: PCP Nurse Practitioner Family; Visit Provider Internal Medicine Medical Oncology
DX: C25.9 Malignant neoplasm of pancreas, unspecified (principal); Z03.89 Encounter for observation for other suspected diseases and conditions ruled out
CPT/HCPCS: 70460; 71260; 74177; Q9967

== ENCOUNTER 2022-07-28 10:48 | Outpatient (CLI) | payer OTHER, MEDICARE, MEDICAID, SELFPAY ==
--- NOTE | 2022-07-28 | CA_ITS ---
FINAL REPORT TECHNIQUE: Color Doppler, duplex Doppler and compression sonography of the left lower extremity deep venous systems was performed. CLINICAL HISTORY: Patient currently has metastatic breast cancer, left leg redness and edema. COMPARISON: none FINDINGS: There is evidence of thrombosis throughout the deep venous system. SVT is noted in the proximal greater saphenous vein. IMPRESSION: Positive for DVT in the left lower extremity. Reviewed, Interpreted and Dictated by Koko Garcia III, MD Transcribed by Marina Puentes Authenticated and [facility]
[2022-07-28 11:07] VITALS: BMI 16.2
[2022-07-28 11:56] LABS: Chloride 110 mmol/L (98-107); Potassium 4.3 mmoL/L (3.5-5.1); Sodium 140 mmol/L (136-145)
[2022-07-28 11:58] LABS: Blood Urea Nitrogen 27 mg/dl (7-17); Creatinine Clearance Estimated 31 mL/min (50-200); Estimated Glomerular Filt Rate 82 ml/min (>60); GFR (African American) 99 ML/MIN (>60)
[2022-07-28 11:59] LABS: Alanine Aminotransferase 11 U/L (12-78); Albumin Level 3.1 g/dl (3.5-5.0); Albumin/Globulin Ratio 1.2 (1.1-1.8); Alkaline Phosphatase 59 U/L (38-126); Anion Gap 7.3 mEq/L (5-15); Aspartate Amino Transferase 17 U/L (14-36); Bilirubin,Total 0.4 mg/dl (0.2-1.3); Carbon Dioxide 27 mmol/L (22.0-30.0); Globulin 2.5 g/dL (1.3-3.2); Total Protein,Serum 5.6 g/dl (6.3-8.2)
[2022-07-28 12:00] LABS: Calcium 8.4 mg/dl (8.4-10.2); Glucose 73 mg/dl (74-100)
[2022-07-28 12:01] LABS: Basophils % 0.4 % (0.1-2.0); Eosinophils % 0.4 % (0.1-12.0); Hematocrit 36.1 % (37.0-47.0); Hemoglobin 11.5 g/dL (12.2-16.2); Lymphocytes # 1.3 K/mm3 (0.7-4.5); Mean Corpuscular HGB Conc 31.9 g/dL (31.8-35.4); Mean Corpuscular Hemoglobin 27.5 pg (27.0-31.2); Mean Corpuscular Volume 86.3 fl (81-99); Mean Platelet Volume 8.5 fl (7.4-10.4); Monocytes # 0.4 K/mm3 (0.1-1.0); Monocytes % 5.6 % (1.7-9.3); Neutrophils # 5.7 K/mm3 (1.8-7.8); Neutrophils % 76.5 % (37.0-80.0); Platelet Count 248 K/mm3 (142-424); Red Blood Count 4.19 M/mm3 (4.20-5.40); Red Cell Distribution Width 15.7 % (11.5-17.5); White Blood Count 7.5 K/mm3 (4.8-10.8)
[2022-07-28 12:07] LABS: INR 0.92 (0.9-1.1)
== END 2022-07-28 11:30 | disposition home or self-care (01) ==
PROVIDERS: PCP Nurse Practitioner Family
DX: C25.9 Malignant neoplasm of pancreas, unspecified (principal); I82.402 Acute embolism and thrombosis of unspecified deep veins of left lower extremity; Z45.2 Encounter for adjustment and management of vascular access device
CPT/HCPCS: 36591; 80053; 85025; 85610; 93971; J1642

== ENCOUNTER 2022-08-12 11:41 | Emergency (ER) | payer OTHER, MEDICARE, MEDICAID, SELFPAY ==
[2022-08-12] VITALS (7 sets, daily range): BP systolic 129–162; BP diastolic 65–101; PULSE 65–78; RESP 18–20; TEMP 36.8; O2SAT 98–99; BMI 19.8
--- NOTE | 2022-08-12 12:02 | HMH.EDGENADL ---
Discharge Plan Disposition Patient Disposition: Xfer Other Condition: Fair Prescriptions Prescriptions: No Action mirtazapine 7.5 mg tablet 7.5 mg PO HS potassium chloride 20 mEq tablet,ER particles/crystals 20 tab PO DAILY megestrol 400 mg/10 mL (40 mg/mL) suspension 400 mg PO DAILY morphine 15 mg tablet 15 mg PO Q4H PRN (Reason: pain) Qty: 180 0RF morphine 15 mg tablet 15 mg PO Q4H Activity Restrictions/Add. Instructions Additional Instructions/Restrictions: Your CAT scan of your head and your neck did not demonstrate any acute abnormalities. I would recommend reconsideration of the Eliquis given that you are a fall risk. Please discuss this with primary care physician please come back with any worsening of her mental status. Clinical Impressions Clinical Impression: Minor head injury, Fall Discharge ED Provider: Miguelito Muller Adult HPI General Chief complaint: Fall Stated complaint: fall Time Seen by Provider: 08/12/22 12:02 History of Present Illness HPI narrative: Patient is a 72-year-old female with a history of pancreatic cancer lives in a residential brought in today after a witnessed fall patient states that she simply tripped try to go to the bathroom by herself. This was confirmed by daughter in the room. Patient denies any significant pain no chest abdomen pelvis pain no long bone pains that she did hit her head and has some small pain in the forehead. Denies any neck pain denies any neurologic symptoms. Is on Eliquis for unknown reasons. Related Data Home Medications Medication Instructions Recorded Confirmed mirtazapine 7.5 mg tablet 7.5 mg PO HS Appetite 04/28/22 07/08/22 stimulant/mood potassium chloride 20 mEq 20 tab PO DAILY Potassium 04/28/22 07/08/22 tablet,extended release(part/cryst) replacement morphine 15 mg immediate release 15 mg PO Q4H pain 06/02/22 07/08/22 tablet megestrol 400 mg/10 mL (40 mg/mL) 400 mg PO DAILY 06/30/22 07/08/22 oral suspension Previous Rx's Medication Instructions Recorded morphine 15 mg immediate release 15 mg PO Q4H PRN pain #180 tabs 05/26/22 tablet Allergies Allergy/AdvReac Type Severity Reaction Status Date / Time No Known Allergies Allergy Verified 07/08/22 13:23 [facility] Disclaimer: The information contained in this section may have been updated after the patient was seen, as this information can be updated by other users. Medical History Chronic back pain History of breast cancer Hypertension Pancreatic cancer Surgical History History of bilateral tubal ligation History of section History of colonoscopy History of lumpectomy of left breast Family History Other Family history of cancer Family history of diabetes mellitus type II Family history of stroke Social History Smoking Status: Never smoker alcohol intake: never substance use type: denies use current occupational status: retired Travel in the last 8 weeks: None household members: significant other housing: other lives independently: Yes marital status: ROS Obtained: Yes All systems reviewed & no additional complaints except as documented Physical Exam General General appearance: alert and in no apparent distress Head Head exam: atraumatic (Small frontal hematoma just appear left lateral orbital rim otherwise head is normocephalic without evidence of trauma no evidence of depressed skull fracture no bassett sign or raccoon eye) Neck Neck exam: Absent tenderness Chest Chest inspection: Present normal inspection; Absent symmetric chest wall rise or tenderness Respiratory Respiratory exam: Present normal lung sounds bilaterally; Absent respiratory di
--- NOTE | 2022-08-12 12:07 | CT_ITS ---
FINAL REPORT TECHNIQUE: Thin section axial images were obtained through the cervical spine without contrast. Multiplanar reconstruction images were obtained from the axial data. Exam was performed using dose reduction techniques. CLINICAL HISTORY: fall, on eliquis FINDINGS: There is no acute fracture or acute malalignment of the cervical spine. There is no evidence of unilateral or bilateral facet lock. The craniocervical junction is intact. Vertebral body height is preserved. There is multilevel degenerative disc disease. No acute paraspinal abnormality is identified. Limited evaluation of the lung apices are unremarkable. IMPRESSION: No acute osseous abnormality of the cervical spine. Multilevel degenerative disc disease. Reviewed, Interpreted and Dictated by Mary Romo MD Transcribed by Bev Massey Authenticated and . [facility]
--- NOTE | 2022-08-12 12:07 | CT_ITS ---
FINAL REPORT TECHNIQUE: Thin section axial images were obtained from skull base to vertex without contrast. Coronal reconstruction images were obtained from the axial data. Exam was performed using dose reduction technique. CLINICAL HISTORY: fall, on eliquis COMPARISON: 07/07/2022 FINDINGS: There is age-appropriate atrophy. There is no mass effect or midline shift. There is a partially calcified small meningioma along the right frontal vertex, unchanged from previous. There is no intracranial hemorrhage. There is no hydrocephalus. Periventricular low density is likely related to changes of chronic small vessel ischemia. The basilar cisterns are preserved. The posterior fossa is without acute abnormality. The soft tissues are without acute abnormality. No acute osseous abnormality is identified. IMPRESSION: No acute intracranial abnormality. Atrophy and changes suggesting chronic small vessel ischemia. Reviewed, Interpreted and Dictated by Mary Romo MD Transcribed by Bertha Tolentino Authenticated and [facility]
== END 2022-08-12 16:37 | disposition other institution (70) ==
PROVIDERS: Emergency Provider Student in an Organized Health Care Education/Training Program
DX: S09.8XXA Other specified injuries of head, initial encounter (principal); W19.XXXA Unspecified fall, initial encounter; Z85.07 Personal history of malignant neoplasm of pancreas; M54.9 Dorsalgia, unspecified; G89.29 Other chronic pain; Z85.3 Personal history of malignant neoplasm of breast; I10 Essential (primary) hypertension; Z98.51 Tubal ligation status; Z90.12 Acquired absence of left breast and nipple; Z83.3 Family history of diabetes mellitus; Z80.9 Family history of malignant neoplasm, unspecified; Z82.3 Family history of stroke
CPT/HCPCS: 70450; 72125; 99285

== ENCOUNTER 2022-09-19 18:23 | Emergency (ER) | payer OTHER, MEDICARE, MEDICAID, SELFPAY ==
[2022-09-19 18:23] VITALS: BP 166/88; PULSE 80; RESP 18; TEMP 37.3; O2SAT 98; BMI 17.6
--- NOTE | 2022-09-19 18:31 | ECG_ITS ---
APPROVED REPORT Exam: Resting ECG HR:97 bpm ECG Measurements Heart Rate 97 AXES ID 118 P 77 QRSd 78 QRS 74 QT 481 T 90 QTc 535 Conclusion SINUS RHYTHM WITH SHORT ID INTERVAL WITH FREQUENT SUPRAVENTRICULAR PREMATURE COMPLEXES NONSPECIFIC T-WAVE ABNORMALITY Marked artifact UNCONFIRMED REPORT Electronically signed by : Ricardo Gu MD 09/20/2022 02:59:18
--- NOTE | 2022-09-19 18:40 | CT_ITS ---
PROCEDURE INFORMATION: Exam: CT Cervical Spine Without Contrast Exam date and time: 09/19/2022 6:58 PM Age: 72 years old Clinical indication: Injury or trauma; Fall; Blunt trauma TECHNIQUE: Imaging protocol: Computed tomography of the cervical spine without contrast. Radiation optimization: All CT scans at this facility use at least one of these dose optimization techniques: automated exposure control; mA and/or kV adjustment per patient size (includes targeted exams where dose is matched to clinical indication); or iterative reconstruction. REPORTING DATA: Count of CT and Cardiac NM exams in prior 12 months: This patient has received 9 known CTs and 0 known cardiac nuclear medicine studies in the 12 months prior to the current study. COMPARISON: CT CERVICAL SPINE WO CON 08/12/2022 12:24 PM FINDINGS: Bones/joints: No acute fracture. Normal alignment. There is [id number] degenerative disc disease at C5-C6 and C6-C7. Lungs: Lung apices are normal. Soft tissues: Unremarkable. IMPRESSION: No acute findings.
--- NOTE | 2022-09-19 18:40 | CT_ITS ---
PROCEDURE INFORMATION: Exam: CT Head Without Contrast Exam date and time: 09/19/2022 6:55 PM Age: 72 years old Clinical indication: Injury or trauma; Fall; Blunt trauma (contusions or hematomas); Consciousness not specified; Patient HX: Fell land hit back of head on a door knob at longterm. ; Additional info: Head injury TECHNIQUE: Imaging protocol: Computed tomography of the head without contrast. Radiation optimization: All CT scans at this facility use at least one of these dose optimization techniques: automated exposure control; mA and/or kV adjustment per patient size (includes targeted exams where dose is matched to clinical indication); or iterative reconstruction. REPORTING DATA: Count of CT and Cardiac NM exams in prior 12 months: This patient has received 9 known CTs and 0 known cardiac nuclear medicine studies in the 12 months prior to the current study. COMPARISON: CT HEAD/BRAIN WO CON 08/12/2022 12:24 PM FINDINGS: Brain: There is mild to moderate small vessel disease. There is no evidence of acute parenchymal hemorrhage, extra-axial collection, or acute infarction. There is no mass effect, midline shift, or downward herniation. Cerebral ventricles: No ventriculomegaly. Paranasal sinuses: Visualized sinuses are unremarkable. No fluid levels. Mastoid air cells: Visualized mastoid air cells are well aerated. Bones/joints: Unremarkable. No acute fracture. Soft tissues: Unremarkable. IMPRESSION: [id number] small vessel disease. No evidence of acute intracranial process.
--- NOTE | 2022-09-19 18:50 | HMH.EDGENADL ---
Discharge Plan Disposition Patient Disposition: Home, Self-Care Prescriptions Prescriptions: No Action trazodone 50 mg tablet 50 mg PO ACHS Label Comments: TAKE ONE TABLET BY MOUTH EVERY NIGHT AT BEDTIME lorazepam 0.5 mg tablet 0.5 mg PO NEEDED PRN (Reason: Anxiety) Label Comments: TAKE ONE TABLET BY MOUTH EVERY 6 HOURS NEEDED FOR ANXIETY DYSPENA AND/OR SEIZURES *CCK* ondansetron 4 mg tablet,disintegrating 4 mg PO NEEDED PRN (Reason: Nausea) Label Comments: DIRECTED ORALLY EVERY 6 HOURS NEEDED FOR NAUSEA 30 DAYS Rx Instructions: Patient no longer taking morphine concentrate 100 mg/5 mL (20 mg/mL) solution 20 mg PO NEEDED PRN (Reason: Pain) Label Comments: TAKE 10 MG (0.5 ML) ORAL EVERY 2 HOURS NEEDED FOR PAIN/SOB dextromethorphan polistirex-GG 30-200 mg/5 mL Suspension,Extended Rel 12 Hr 5 ml PO NEEDED PRN (Reason: Cough) Referrals Follow up/Referrals: Provider,Referral, MD [Primary Care Provider] - See instructions Clinical Impressions Clinical Impression: Head injury Discharge ED Provider: Jasper Nazario General Adult HPI General Chief complaint: Fall Stated complaint: fall Time Seen by Provider: 09/19/22 18:25 Mode of Arrival: Ambulatory Source of Information: Patient and EMS Limitations: No Limitations Description of Symptoms (Recalled from ER Triage Doc. by RN): per EMS, snf staff told them the pt fell and hit her head, they stated she didn't lose consciousness, pt is pleasantly confused per baseline, pt states she has lower back pain, knot noted to back of head History of Present Illness HPI narrative: 72-year-old female was ambulatory and fell and hit the back of her head. She has history of cancer and is on hospice currently. She has mild dementia as well and does not make a great historian. She is pleasantly confused at baseline. Able to move all extremities and otherwise and not distress Related Data Home Medications Medication Instructions Recorded Confirmed dextromethorphan polistirex-GG ER 5 ml PO NEEDED PRN Cough 09/19/22 09/19/22 30 mg-200 mg/5 mL oral susp ER 12 hr lorazepam 0.5 mg tablet 0.5 mg PO NEEDED PRN Anxiety 09/19/22 09/19/22 morphine concentrate 100 mg/5 mL 20 mg PO NEEDED PRN Pain 09/19/22 09/19/22 (20 mg/mL) oral solution ondansetron 4 mg disintegrating 4 mg PO NEEDED PRN Nausea 09/19/22 09/19/22 tablet trazodone 50 mg tablet 50 mg PO ACHS Insomnia 09/19/22 09/19/22 Allergies Allergy/AdvReac Type Severity Reaction Status Date / Time No Known Allergies Allergy Verified 09/19/22 18:40 [facility] Disclaimer: The information contained in this section may have been updated after the patient was seen, as this information can be updated by other users. Medical History Chronic back pain History of breast cancer Hypertension Pancreatic cancer Surgical History History of bilateral tubal ligation History of section History of colonoscopy History of lumpectomy of left breast Family History Other Family history of cancer Family history of diabetes mellitus type II Family history of stroke Social History Smoking Status: Never smoker alcohol intake: never substance use type: denies use current occupational status: retired Travel in the last 8 weeks: None household members: significant other housing: other lives independently: Yes marital status: ROS Obtained: Yes unobtainable due to mental condition Physical Exam General General appearance: alert and in no apparent distress Head Head exam: other (Contusion to posterior scalp) Eye Eye exam: Present PERRL and EOMI ENT ENT exam: Present
[2022-09-19 19:35] VITALS: BP 150/88; PULSE 85; RESP 20; TEMP 36.8; O2SAT 95
--- NOTE | 2022-09-19 19:43 | PC.NURSE ---
Called report to Corin Posey [facility]
== END 2022-09-19 19:50 | disposition home or self-care (01) ==
PROVIDERS: Emergency Provider Emergency Medicine
DX: S09.8XXA Other specified injuries of head, initial encounter (principal); W19.XXXA Unspecified fall, initial encounter
CPT/HCPCS: 70450; 72125; 99284